=== PATIENT | female | born 1970 | race Caucasian/White ===

== ENCOUNTER 2018-11-24 08:46 | Day surgery (SDC) | payer BC ==
[~2018-11-24 08:46] MED LIST: Lactated Ringers 1,000 ML IV SCH
--- NOTE | 2018-11-24 09:22 | PCM.PREANE ---
Preanesthetic Assessment - Anesthesia/Transfusion/Family Hx Anesthesia History: Prior Anesthesia Without Reaction Family History of Anesthesia Reaction: No Transfusion History: No Prior Transfusion(s) Intubation History: Unknown - Review of Systems General: No Symptoms Pulmonary: No Symptoms Cardiovascular: No Symptoms Gastrointestinal: No Symptoms Neurological: No Symptoms Other: Reports: None - Physical Assessment Height: 5 ft 5 in Weight: 93.894 kg ASA Class: 2 Mental Status: Alert & Oriented x3 Airway Class: Mallampati = 2 Dentition: Reports: Broken Tooth/Teeth (multiple), Missing Tooth/Teeth (multiple ) Thyro-Mental Finger Breadths: 3 Mouth Opening Finger Breadths: 3 ROM/Head Extension: Full Lungs: Clear to Auscultation, Normal Respiratory Effort Cardiovascular: Regular Rate, Regular Rhythm - Allergies Allergies/Adverse Reactions: Allergies Allergy/AdvReac Type Severity Reaction Status Date / Time No Known Allergies Allergy Verified 11/23/18 16:38 - Blood Blood Available: No - Anesthesia Plan Pre-Op Medication Ordered: None - Acknowledgements Anesthesia Type Planned: General Anesthesia Pt an Appropriate Candidate for the Planned Anesthesia: Yes Alternatives and Risks of Anesthesia Discussed w Pt/Guardian: Yes Pt/Guardian Understands and Agrees with Anesthesia Plan: Yes PreAnesthesia Questionnaire HEENT History: Reports: Other (See Below) Other HEENT History: wears glasses 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, Other (See Below) (ovarian cyst) Neurological History: Reports: Concussion Psychiatric History: Reports: Anxiety, Depression Endocrine/Metabolic History: Reports: Obesity/BMI 30+ - Past Surgical History Female Surgical History: Reports: Tubal Ligation - SUBSTANCE USE Smoking Status *Q: Never Smoker Recreational Drug Use History: No - HOME MEDS Home Medications: Home Meds ALPRAZolam [Xanax] 0.5 mg PO DAILY PRN 11/23/18 [History] Escitalopram [Lexapro] 20 mg PO DAILY 11/23/18 [History] Zolpidem [Ambien] 10 mg PO BEDTIME 11/23/18 [History] busPIRone HCl [Buspirone HCl] 7.5 mg PO BID 11/23/18 [History] medroxyPROGESTERone [Provera] 20 mg PO DAILY 11/23/18 [History] - CURRENT (IN HOUSE) MEDS Current Meds: Current Medications Lactated Ringer's (Ringers, Lactated) 1,000 mls @ 125 mls/hr IV ASDIRECTED [facility]
[2018-11-24] MEDS ORDERED: fentaNYL 100 MCG/2 ML SDV ONE (09:42)
[2018-11-24] MEDS ORDERED: Midazolam 1 MG/ML 2 ML SDV ONE ×2 (09:42→11:28)
[2018-11-24] MEDS ORDERED: Propofol 200 MG/20 ML SDV ONE ×2 (09:42→11:27)
[2018-11-24] MEDS ORDERED: Ondansetron 4 MG/2 ML SDV ONE ×2 (09:43→11:32)
[2018-11-24] MEDS ORDERED: Lidocaine 2% 5 ML SDV ONE ×2 (09:43→11:32)
[2018-11-24] MEDS ORDERED: Dexamethasone 4 MG/ML 5 ML MDV ONE ×2 (09:43→11:32)
[2018-11-24] MEDS ORDERED: fentaNYL 250 MCG/5 ML SDV ONE (11:28)
--- NOTE | 2018-11-24 12:42 | PCM.OPNOTE ---
- General Post-Op/Procedure Note Date of Surgery/Procedure: 11/24/18 Operative Procedure(s): operative hysteroscopy with directed biopsies and fractional D&C Findings: uterus retroverted sounds to 10 cm, bilateral tubal ostia identified. There were no discrete polyps or fibroids, there were several patches or prominent irregular endometrium that were directed biopsy using the myosure Pre Op Diagnosis: menorrhagia with anemia Post-Op Diagnosis: Same Anesthesia Technique: General LMA Primary Surgeon: Miracle Rubi Anesthesia Provider: Lucille Varma Pathology: directed endometrial biopsy, endocervical curettings, endometrial curettings. Fluid Replacement, Intraop: 1,100 EBL in mLs: 50 Complications: None Known. Condition: Good
--- NOTE | 2018-11-24 13:00 | PCM.POSTAN ---
POST ANESTHESIA ASSESSMENT - MENTAL STATUS Mental Status: Alert, Oriented - VITAL SIGNS Vital Signs: Last Vital Signs Temp 36.7 C 11/24/18 09:25 Pulse 108 H 11/24/18 12:53 Resp 12 11/24/18 12:53 BP 132/78 11/24/18 12:53 Pulse Ox 94 L 11/24/18 12:53 - RESPIRATORY Respiratory Status: Respiratory Rate WNL, Airway Patent, O2 Saturation Stable - CARDIOVASCULAR CV Status: Pulse Rate WNL, Blood Pressure Stable - GASTROINTESTINAL GI Status: No Symptoms - PAIN Pain Score: 0 - POST OP HYDRATION Hydration Status: Adequate & Stable - OBSERVATIONS Free Text/Narrative:: no anesthesia problems
--- NOTE | 2018-11-24 13:29 | PCM48HPAN ---
Post Anesthesia Note - EVALUATION WITHIN 48HRS OF ANESTHETIC Vital Signs in Normal Range: Yes Patient Participated in Evaluation: Yes Respiratory Function Stable: Yes Airway Patent: Yes Cardiovascular Function Stable: Yes Hydration Status Stable: Yes Pain Control Satisfactory: Yes Nausea and Vomiting Control Satisfactory: Yes Mental Status Recovered: Yes Vital Signs: Last Vital Signs Temp 36.7 C 11/24/18 09:25 Pulse 108 H 11/24/18 12:53 Resp 12 11/24/18 12:53 BP 132/78 11/24/18 12:53 Pulse Ox 94 L 11/24/18 12:53 - COMMENTS/OBSERVATIONS Free Text/Narrative:: no anesthesia problems
--- NOTE | 2018-11-24 15:36 | OR ---
SURGEON: Miracle Rubi M.D. DATE OF PROCEDURE: 11/24/2018 PREOPERATIVE DIAGNOSIS: Menorrhagia with anemia. POSTOPERATIVE DIAGNOSIS: Menorrhagia with anemia. PROCEDURES: Hysteroscopic directed biopsies, fractional D and C. PRIMARY SURGEON: Miracle Rubi MD. ANESTHESIA: General LMA. ESTIMATED BLOOD LOSS: 50 mL. FLUIDS: 1100 mL of crystalloid. FINDINGS: Uterus retroverted, 10 cm on sounding. Excellent visualization of the uterine cavity. Bilateral tubal ostia were identified. There was no discrete polyp or fibroid. There were several patches of prominent irregular endometrium which were directly biopsied followed by ECC and sharp curettage. PATHOLOGY SPECIMENS: Hysteroscopic directed endometrial biopsy, endometrial curettings, endocervical curettings. COMPLICATIONS: None known. DISPOSITION: Stable to recovery. BRIEF HISTORY: This is a 48-year-old female. She presents with a month long history of continuous heavy bleeding. She was initially placed on Provera by her primary care provider. She continued to bleed. She saturated through her pads. She presented to the emergency room in [place] on 11/22/2018 and received tranexamic acid. Her hemoglobin at that time was 9.2. Her bleeding did improve somewhat, but she continued to pass clots. Ultrasound showed a thickened endometrium of 16 mm, and she presented for consultation in the clinic yesterday, and I reviewed options with her, but explained that the first step was to get tissue sampling of the uterus and evaluate for a fibroid or polyp; and therefore, she agrees to proceed with a hysteroscopic evaluation of the uterine cavity with possible directed biopsies, possible polypectomy, and fractional D and C with risks discussed including bleeding, infection, injury to surrounding organs if uterine perforation was to occur, risk of fluid overload, risk of anesthesia. Understanding all these risks, she does desire to proceed. DESCRIPTION OF PROCEDURE: With the patient in dorsal lithotomy position, under adequate general LMA analgesia, the perineum and vagina were prepped with Betadine and draped in usual fashion for vaginal surgery. Bladder had been drained with a red Becerra catheter. SCDs were in place. An appropriate time-out was held. Bimanual examination revealed a retroverted 10-week size uterus. Speculum was placed in the vagina. The lower lip of the cervix was grasped with an Allis clamp and the uterus sounded to 10 cm. The uterus accepted a 6 mm hysteroscope without any difficulty and there was good visualization of the uterine cavity. However, due to the discrete areas of abnormal endometrium, I did desire to proceed with directed biopsy using the MyoSure. Therefore, the MyoSure scope was passed into the uterine cavity and the abnormal areas of endometrium were directly biopsied using the MyoSure. This being completed, the hysteroscope was removed. Sharp curettage of the endocervix was then performed and collected with a Cytobrush. Sharp curettage of the endometrium was then performed with a moderate amount of tissue obtained. All of the instruments were removed from the vagina. Final sponge, needle, and instrument counts were reported as correct. There were no known complications. The patient was transferred to recovery in good condition. SANKET MALLORY /[id number]
== END 2018-11-24 13:42 | disposition home or self-care (01) ==
LOC: MW.SDS 08:46
PROVIDERS: ATTEND Obstetrics & Gynecology
DX: N92.1 Excessive and frequent menstruation with irregular cycle (principal); D50.0 Iron deficiency anemia secondary to blood loss (chronic); F32.9 Major depressive disorder, single episode, unspecified; Z79.899 Other long term (current) drug therapy
CPT/HCPCS: 36415; 58558; 84703; 85027; J1100; J2001; J2250; J2405; J2704; J3010; J7120

== ENCOUNTER 2018-12-14 11:00 | Day surgery (SDC) | payer BC ==
--- NOTE | 2018-12-14 11:46 | PCM.PREANE ---
Preanesthetic Assessment - Anesthesia/Transfusion/Family Hx Anesthesia History: Prior Anesthesia Without Reaction Family History of Anesthesia Reaction: No Transfusion History: No Prior Transfusion(s) Intubation History: Unknown - Review of Systems General: No Symptoms Pulmonary: No Symptoms Cardiovascular: No Symptoms Gastrointestinal: No Symptoms Neurological: No Symptoms Other: Reports: None - Physical Assessment NPO Status Date: 12/13/18 NPO Status Time: 22:00 Vital Signs: Last Vital Signs Temp 96.8 F 12/14/18 11:16 Pulse 100 12/14/18 11:16 Resp 18 12/14/18 11:16 BP 144/86 H 12/14/18 11:16 Pulse Ox 95 12/14/18 11:16 Height: 5 ft 5 in Weight: 94.801 kg ASA Class: 2 Mental Status: Alert & Oriented x3 Airway Class: Mallampati = 2 Dentition: Reports: Missing Tooth/Teeth, Caries ROM/Head Extension: Full Lungs: Clear to Auscultation, Normal Respiratory Effort Cardiovascular: Regular Rate, Regular Rhythm - Allergies Allergies/Adverse Reactions: Allergies Allergy/AdvReac Type Severity Reaction Status Date / Time No Known Allergies Allergy Verified 12/11/18 16:49 - Blood Blood Available: No - Anesthesia Plan Pre-Op Medication Ordered: None - Acknowledgements Anesthesia Type Planned: General Anesthesia Pt an Appropriate Candidate for the Planned Anesthesia: Yes Alternatives and Risks of Anesthesia Discussed w Pt/Guardian: Yes Pt/Guardian Understands and Agrees with Anesthesia Plan: Yes Additional Comments: PMH: anx/dep PLAN: ga/lma with toradol PreAnesthesia Questionnaire HEENT History: Reports: Other (See Below) Other HEENT History: wears glasses 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
[2018-12-14] MEDS ORDERED: Lactated Ringers 1,000 ML IV SCH (12:15)
[2018-12-14] MEDS ORDERED: fentaNYL 100 MCG/2 ML SDV ONE (12:48)
[2018-12-14] MEDS ORDERED: Midazolam 1 MG/ML 2 ML SDV ONE (12:48)
[2018-12-14] MEDS ORDERED: Propofol 200 MG/20 ML SDV ONE ×2 (12:48→13:06)
[2018-12-14] MEDS ORDERED: Ondansetron 4 MG/2 ML SDV ONE (12:48)
[2018-12-14] MEDS ORDERED: fentaNYL 100 MCG/2 ML SDV IVPUSH PRN (13:23)
[2018-12-14] MEDS ORDERED: Ketorolac 30 MG/ML SDV ONE (13:28)
--- NOTE | 2018-12-14 13:32 | PCM.OPNOTE ---
- General Post-Op/Procedure Note Date of Surgery/Procedure: 12/14/18 Operative Procedure(s): diagnostic hysteroscopy, uterine curettage and Minverva thermal endometrial ablation Findings: Uterus sounds to 9 cm, cervix 4 cm, cavity 5 cm, normal appearing uterine, bilateral tubal ostia identified. Pre Op Diagnosis: Menorrhagia with anemia Post-Op Diagnosis: Same Anesthesia Technique: General LMA Primary Surgeon: Miracle Rubi Anesthesia Provider: Yakov Irwin Pathology: endometrial curettings. Fluid Replacement, Intraop: 500 EBL in mLs: 20 Drain/Tube Comments:: Hysteroscopic deficit 75 ml Complications: None Known Condition: Good
--- NOTE | 2018-12-14 13:57 | PCM.POSTAN ---
POST ANESTHESIA ASSESSMENT - MENTAL STATUS Mental Status: Alert, Oriented - VITAL SIGNS Vital Signs: Last Vital Signs Temp 99.0 F 12/14/18 13:33 Pulse 98 12/14/18 13:53 Resp 11 L 12/14/18 13:53 BP 132/75 12/14/18 13:53 Pulse Ox 96 12/14/18 13:53 - RESPIRATORY Respiratory Status: Respiratory Rate WNL, Airway Patent, O2 Saturation Stable - CARDIOVASCULAR CV Status: Pulse Rate WNL, Blood Pressure Stable - GASTROINTESTINAL GI Status: No Symptoms - POST OP HYDRATION Hydration Status: Adequate & Stable
--- NOTE | 2018-12-14 13:57 | PCM48HPAN ---
Post Anesthesia Note - EVALUATION WITHIN 48HRS OF ANESTHETIC Vital Signs in Normal Range: Yes Patient Participated in Evaluation: Yes Respiratory Function Stable: Yes Airway Patent: Yes Cardiovascular Function Stable: Yes Hydration Status Stable: Yes Pain Control Satisfactory: Yes Nausea and Vomiting Control Satisfactory: Yes Mental Status Recovered: Yes Vital Signs: Last Vital Signs Temp 99.0 F 12/14/18 13:33 Pulse 98 12/14/18 13:53 Resp 11 L 12/14/18 13:53 BP 132/75 12/14/18 13:53 Pulse Ox 96 12/14/18 13:53
[2018-12-14] MEDS ORDERED: Acetaminophen/oxyCODONE 325-5 MG Tab PO PRN (14:16)
--- NOTE | 2018-12-14 14:28 | OR ---
SURGEON: Miracle Rubi M.D. DATE OF PROCEDURE: 12/14/2018 PREOPERATIVE DIAGNOSIS: Menorrhagia with anemia. POSTOPERATIVE DIAGNOSIS: Menorrhagia with anemia. PROCEDURES: Diagnostic hysteroscopy, uterine curettage with Meaghan thermal endometrial ablation. PRIMARY SURGEON: Miracle Rubi MD. ANESTHESIA: LMA. ESTIMATED BLOOD LOSS: Less than 20 mL. FLUIDS: 500 mL of crystalloid. HYSTEROSCOPIC DEFICIT: 75 mL of normal saline. HYSTEROSCOPIC FINDINGS: The uterus sounds to 9 cm. Cervix sounds to 4 cm. Uterine depth of 5 cm. Upon hysteroscopy, bilateral tubal ostia were identified. There were no lesions. There was a small amount of increased endometrium anteriorly. PATHOLOGY SPECIMEN: Uterine curettings. ESTIMATED BLOOD LOSS: Less than 20 mL. COMPLICATIONS: None known. BRIEF HISTORY: This is a 48-year-old female. She presents with menorrhagia. She underwent hysteroscopy, polypectomy, fractional D and C 2-1/2 weeks ago. I did note the endometrial polyps. Due to heavy bleeding that she was having, I did not feel that I could have adequate pathology evaluation in the office; and therefore, we did not proceed with ablation at that time. However, the final pathology came back as benign endometrium, and she did continue to bleed following the D and C; and therefore, I have recommended further intervention. She has previously been treated with large amounts of Provera orally; therefore, I am uncertain whether the Mirena IUD will be effective for her in protecting her from bleeding, and she declines hysterectomy at this time, and therefore, desires to proceed with a thermal endometrial ablation with risks discussed including bleeding, infection, uterine perforation with injury to surrounding organs, risk of fluid overload. She understands that she must never become after having an ablation due to the lack of place for the embryo to implant and additionally risk of hematometra and risk of failure of 10% to 20%. Understanding all these risks, she does desire to proceed. DESCRIPTION OF PROCEDURE: With the patient in dorsal lithotomy position, under adequate general LMA analgesia, the perineum and vagina were prepped with Betadine and draped in the usual fashion for vaginal surgery. She had emptied her bladder prior to coming to the operating room. SCDs were in place and an appropriate time-out was held. Bimanual examination revealed an 8- to 9-week size midposition uterus. Speculum was placed in the vagina. The cervix was grasped with an Allis clamp. The 5 mm hysteroscope was placed into the uterine cavity with excellent visualization. Findings as noted above. The hysteroscope was removed and sharp curettage of the endometrium only was performed and a moderate amount of tissue was obtained. This being completed, the Meaghan system was set up with a depth of 5 cm for the uterine fundus, and once the initial test had been passed, the 2-minute treatment cycle was initiated with the balloon inflated and the treatment cycle completed without any difficulty. The balloon was deflated, the arms were retracted, and the Meaghan instrument was removed from the uterus as well as all the instruments removed from the vagina. Final sponge, needle, and instrument counts were reported as correct. There were no complications. The patient was transferred to recovery in good condition. SANKET MALLORY /[id number]
== END 2018-12-14 14:38 | disposition home or self-care (01) ==
LOC: MW.SDS 11:00
PROVIDERS: ATTEND Obstetrics & Gynecology
DX: N92.0 Excessive and frequent menstruation with regular cycle (principal); D50.0 Iron deficiency anemia secondary to blood loss (chronic); F32.9 Major depressive disorder, single episode, unspecified; Z79.899 Other long term (current) drug therapy
CPT/HCPCS: 58563; 88305; A9270; J1885; J2001; J2250; J2405; J2704; J3010; J7120

== ENCOUNTER 2019-12-25 10:03 | Inpatient (IN) | payer BC, OTHER ==
[2019-12-25] MEDS ORDERED: Sodium Chloride 0.9% 2.5 ML Syringe FLUSH PRN (10:17)
[2019-12-25] MEDS ORDERED: Sodium Chloride 0.9% 10 ML Syringe FLUSH PRN (10:17)
[2019-12-25] MEDS ORDERED: Dexamethasone 10 MG/ML SDV IVPUSH ONE (10:19)
--- NOTE | 2019-12-25 10:42 | EDM.PDOC ---
ED HPI GENERAL MEDICAL PROBLEM - General Chief Complaint: Respiratory Problem Stated Complaint: COVID-19/SOB Time Seen by Provider: 12/25/19 10:05 Source of Information: Reports: Patient History Limitations: Reports: No Limitations - History of Present Illness INITIAL COMMENTS - FREE TEXT/NARRATIVE: There is a very nice 49-year-old female with a past medical history of depressio n presenting with shortness of breath and infectious symptoms. She was reportedly diagnosed with COVID-19 on 12/17/2019 at [facility]. Since then, she has had gradually worsening shortness of breath, cough, intermittent confusion, and diarrhea. Her states that she has been intermittently confused at home and not making much sense. This morning, she states that her breathing got worse, which brought her to the emergency department. She also complains of some mild dysuria. No history of autoimmune disease. Denies any neck pain, trouble swallowing or speaking, chest discomfort, h emoptysis, abdominal pain, emesis, rash. ROS: A 10-point review of systems was negative, except as noted in the HPI (or in the ROS section of this note). Past medical history: Reviewed, no additional pertinent history. Surgical history: Reviewed in system, no additional pertinent history. Social history: Reviewed in system, no additional pertinent history. Family history: Reviewed in system, no additional pertinent history. Limited physical examination was performed due to COVID pandemic, distanced physical examination to prevent physician exposure and to preserve PPE. Vital signs reviewed. Nursing notes reviewed. Constitutional: Awake, alert, non-distressed. Head: Normocephalic, atraumatic. Eyes: No scleral icterus. Neck: Able to fully flex and extend. Fully rotates side to side. Cardiovascular: No extremity edema. Tachycardic. 2+ radial pulse. Capillary refill less than 2 seconds. Pulmonary: normal work of breathing, no accessory muscle use. Speaking in full sentences, handling secretions well. Abdomen/GI: nondistended, nontender. Musculoskeletal: No deformities. Integumentary: Appropriate color for ethnicity, warm, dry, no pallor or jaundice, no rash. Neurologic: Alert, answering questions appropriately, normal speech, no facial droop, moving all extremities well. Normal voice. Psychiatric: Appropriate mood and affect, normal thought process. This patient was seen and evaluated during the 2019 SARS-CoV-2 novel coronavirus pandemic period. Community viral transmission is ongoing at time of this encounter. 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, Endometriosis, Neurological History: Reports: Concussion Psychiatric History: Reports: Anxiety, Depression Endocrine/Metabolic History: Reports: Obesity/BMI 30+ - Past Surgical History Female Surgical History: Reports: D&C, Tubal Ligation Social & Family History - Tobacco Use Tobacco Use Status *Q: Never Tobacco User - Recreational Drug Use Recreational Drug Use: No ED ROS GENERAL - Review of Systems Review Of Systems: See Below ED EXAM, GENERAL - Physical Exam Exam: See Below #1 Interpretation EKG Interpretation Comments: 12-Lead ECG Interpretation Acquired: 10:27 AM Rhythm: Sinus rhythm Rate: 93 bpm [place]: Normal Intervals: Normal Ectopy: None RV Strain: No obvious RV strain pattern. ST Segments/T-Waves: T wave inversions in leads III and V3 Acute Ischemic Changes: None apparent Interpretation: No STEMI Course - Vital Signs Text/Narrative:: 49-year-old female presenting with worsening of shortness of breath, fatigue, confusion, diarrhea, and recent COVID-19 diagnosis. Differential diagnosis includes but is not limited to: Sepsis, severe sepsis, C OVID-19, viral pneumonia, bacterial pneumonia, bacteremia, pneumothorax, pleural effusion, congestive heart failure, pulmonary embolism, myocarditis, and many others. Noted to be hypoxic with room air saturations in the 60s on arrival. Immediately roomed and placed on supplemental oxygen. IV access established and labs were sent off. Ordered twelve-lead EKG, chest x-ray, urinalysis. CBC shows leukopenia. ESR elevated at 66. INR and D-dimer normal. APTT elevated at 31.8. Lactate normal. Electrolytes normal. Mild creatinine elevation at 1.2. AST and ALT elevated. Negative troponin and BNP. CRP elevated at 6.0. Urinalysis shows positive nitrites, added on a urine culture. Patient was not hypotensive and lactate was under 4, so she did not qualify for the 30 mL/kg sepsis fluid bolus. Blood cultures were obtained prior to the administration of broad-spectrum antibiotics. She does not meet criteria for septic shock at this point but she does meet criteria for severe sepsis given her hypoxia. Head CT is negative. Chest x-ray shows diffuse interstitial prominence, patchy nodular and ill-defined infiltrates in the left mid and lower lung with mild opacity in the right lung base, possibly due to an infectious process including COVID-19 pneumonia. Borderline cardiomegaly. Patient was given IV dexamethasone, IV remdesivir (obtained verbal consent), IV ceftriaxone. Requiring nasal cannula low-flow oxygen to maintain oxygen saturations above 90%. Will be admitted to the hospital for acute hypoxic respiratory failure with COVID-19 pneumonia. Spoke with the hospitalist Dr. Hoskins's resident who agrees to admit. Last Recorded V/S: Last Vital Signs Temp 36.4 C 12/25/19 10:13 Pulse 105 H 12/25/19 10:13 Resp 19 12/25/19 10:13 BP 110/70 12/25/19 10:13 Pulse Ox 95 12/25/19 10:18 - Orders/Labs/Meds Orders: Active Orders 24 hr Category Date Time Status Admission Status [Patient Status] [ADT] Stat ADT 12/25/19 11:23 Active Cardiac Monitoring [RC] CONTINUOUS Care 12/25/19 10:17 Active EKG Documentation Completion [RC] STAT Care 12/25/19 10:17 Active Overnight Pulse Oximetry [RC] Click to Edit Care 12/25/19 10:18 Active Oxygen Therapy, ED [RC] STAT Care 12/25/19 10:18 Active CORONAVIRUS COVID-19 DEWAYNE [MOLEC] Stat Lab 12/25/19 11:57 Received CULTURE BLOOD [BC] Stat Lab 12/25/19 10:11 Received CULTURE BLOOD [BC] Stat Lab 12/25/19 10:39 Received CULTURE URINE [RM] Stat Lab 12/25/19 10:22 Received Remdesivir (Eua) [Remdesivir (EUA)] 200 mg Med 12/25/19 12:00 Active Sodium Chloride 0.9% [Normal Saline] 250 ml IV ONETIME Sodium Chloride 0.9% [Saline Flush] Med 12/25/19 10:17 Active 10 ml FLUSH ASDIRECTED PRN Sodium Chloride 0.9% [Saline Flush] Med 12/25/19 10:17 Active 2.5 ml FLUSH ASDIRECTED PRN Blood Culture x2 Reflex Set [OM.PC] Stat Oth 12/25/19 10:17 Ordered Pulse Oximetry Continuous Monitoring [OM.PC] Routine Oth 12/25/19 10:17 Ordered Saline Lock Insert [OM.PC] Stat Oth 12/25/19 10:17 Ordered Severe Sepsis Onset Time [OM.PC] Stat Oth 12/25/19 10:17 Ordered Medication Orders Remdesivir 200 mg/ Sodium (Chloride) 250 mls @ 250 mls/hr IV ONETIME ONE Stop: 12/25/19 12:59 Last Admin: 12/25/19 12:08 Dose: 250 mls/hr Documented by: FREIDA Sodium Chloride (Saline Flush) 10 ml FLUSH ASDIRECTED PRN PRN Reason: Keep Vein Open Last Admin: 12/25/19 10:31 Dose: 10 ml Documented by: [id number] Sodium Chloride (Saline Flush) 2.5 ml FLUSH ASDIRECTED PRN PRN Reason: Keep Vein Open Last Admin: 12/25/19 10:31 Dose: 2.5 ml Documented by: [id number] Labs: Laboratory Tests 12/25/19 12/25/19 12/25/19 Range/Units 10:11 10:11 10:11 WBC 2.87 L (4.0-11.0) K/uL RBC 4.40 (4.30-5.90) M/uL Hgb 12.8 (12.0-16.0) g/dL Hct 41.0 (36.0-46.0) % MCV 93.2 (80.0-98.0) fL MCH 29.1 (27.0-32.0) pg MCHC 31.2 (31.0-37.0) g/dL RDW Std Deviation 44.5 (28.0-62.0) fl RDW Coeff of [place] 13 (11.0-15.0) % Plt Count 146 L (150-400) K/uL MPV 10.40 (7.40-12.00) fL Neut % (Auto) 53.0 (48.0-80.0) % Lymph % (Auto) 37.6 (16.0-40.0) % [place] % (Auto) 9.1 (0.0-15.0) % Eos % (Auto) 0.3 (0.0-7.0) % Baso % (Auto) 0.0 (0.0-1.5) % Neut # (Auto) 1.5 (1.4-5.7) K/uL Lymph # (Auto) 1.1 (0.6-2.4) K/uL [place] # (Auto) 0.3 (0.0-0.8) K/uL Eos # (Auto) 0.0 (0.0-0.7) K/uL Baso # (Auto) 0.0 (0.0-0.1) K/uL Nucleated RBC % 0.0 /100WBC Nucleated RBCs # 0 K/uL ESR (0-19) mm/hr INR 1.03 APTT 31.8 H (18.6-31.3) SEC D-Dimer, Quantitative (0.0-0.50) mg/L FEU VBG pH (7.31-7.41) VBG pCO2 (35-45) mmHG VBG pO2 (30-40) mmHG VBG HCO3 (22-30) mEq/L VBG Total CO2 (41-51) mmol/L VBG Base Excess (-3.0-3.0) Lactate 0.9 (0.20-2.00) mmol/L Sodium (136-145) mmol/L Potassium (3.5-5.1) mmol/L Chloride (98-107) mmol/L Carbon Dioxide (21.0-32.0) mmol/L BUN (7.0-18.0) mg/dL Creatinine (0.6-1.0) mg/dL Est Cr Clr Drug Dosing Estimated GFR (MDRD) ml/min Glucose (74-106) mg/dL Calcium (8.5-10.1) mg/dL Total Bilirubin (0.2-1.0) mg/dL AST (15-37) IU/L ALT (14-63) IU/L Alkaline Phosphatase (46-116) U/L Troponin I (0.000-0.056) ng/mL C-Reactive Protein (0.00-0.90) mg/dL B-Natriuretic Peptide (<100) PG/ML Total Protein (6.4-8.2) g/dL Albumin (3.4-5.0) g/dL Globulin (2.6-4.0) g/dL Albumin/Globulin Ratio (0.9-1.6) Urine Color Urine Appearance Urine pH (5.0-8.0) Ur Specific [place] (1.001-1.035) Urine Protein (NEGATIVE) mg/dL Urine Glucose (UA) (NEGATIVE) mg/dL Urine Ketones (NEGATIVE) mg/dL Urine Occult Blood (NEGATIVE) Urine Nitrite (NEGATIVE) Urine Bilirubin (NEGATIVE) Urine Urobilinogen (<2.0) EU/dL Ur Leukocyte Esterase (NEGATIVE) Urine RBC (0-2/HPF) Urine WBC (0-5/HPF) Ur Epithelial Cells (NONE-FEW) Amorphous Sediment (NEGATIVE) Urine Bacteria (NEGATIVE) Urine Mucus (NONE-MOD) 12/25/19 12/25/19 12/25/19 Range/Units 10:11 10:11 10:11 WBC (4.0-11.0) K/uL RBC (4.30-5.90) M/uL Hgb (12.0-16.0) g/dL Hct (36.0-46.0) % MCV (80.0-98.0) fL MCH (27.0-32.0) pg MCHC (31.0-37.0) g/dL RDW Std Deviation (28.0-62.0) fl RDW Coeff of [place] (11.0-15.0) % Plt Count (150-400) K/uL MPV (7.40-12.00) fL Neut % (Auto) (48.0-80.0) % Lymph % (Auto) (16.0-40.0) % [place] % (Auto) (0.0-15.0) % Eos % (Auto) (0.0-7.0) % Baso % (Auto) (0.0-1.5) % Neut # (Auto) (1.4-5.7) K/uL Lymph # (Auto) (0.6-2.4) K/uL [place] # (Auto) (0.0-0.8) K/uL Eos # (Auto) (0.0-0.7) K/uL Baso # (Auto) (0.0-0.1) K/uL Nucleated RBC % /100WBC Nucleated RBCs # K/uL ESR 66 H (0-19) mm/hr INR APTT (18.6-31.3) SEC D-Dimer, Quantitative 0.48 (0.0-0.50) mg/L FEU VBG pH (7.31-7.41) VBG pCO2 (35-45) mmHG VBG pO2 (30-40) mmHG VBG HCO3 (22-30) mEq/L VBG Total CO2 (41-51) mmol/L VBG Base Excess (-3.0-3.0) Lactate (0.20-2.00) mmol/L Sodium 142 (136-145) mmol/L Potassium 3.8 (3.5-5.1) mmol/L Chloride 104 (98-107) mmol/L Carbon Dioxide 29.7 (21.0-32.0) mmol/L BUN 9 (7.0-18.0) mg/dL Creatinine 1.2 H (0.6-1.0) mg/dL Est Cr Clr Drug Dosing TNP Estimated GFR (MDRD) 47.9 ml/min Glucose 103 (74-106) mg/dL Calcium 8.2 L (8.5-10.1) mg/dL Total Bilirubin 0.3 (0.2-1.0) mg/dL AST 121 H (15-37) IU/L ALT 85 H (14-63) IU/L Alkaline Phosphatase 116 (46-116) U/L Troponin I < 0.050 (0.000-0.056) ng/mL C-Reactive Protein 6.80 H (0.00-0.90) mg/dL B-Natriuretic Peptide (<100) PG/ML Total Protein 7.3 (6.4-8.2) g/dL Albumin 3.2 L (3.4-5.0) g/dL Globulin 4.1 H (2.6-4.0) g/dL Albumin/Globulin Ratio 0.8 L (0.9-1.6) Urine Color Urine Appearance Urine pH (5.0-8.0) Ur Specific [place] (1.001-1.035) Urine Protein (NEGATIVE) mg/dL Urine Glucose (UA) (NEGATIVE) mg/dL Urine Ketones (NEGATIVE) mg/dL Urine Occult Blood (NEGATIVE) Urine Nitrite (NEGATIVE) Urine Bilirubin (NEGATIVE) Urine Urobilinogen (<2.0) EU/dL Ur Leukocyte Esterase (NEGATIVE) Urine RBC (0-2/HPF) Urine WBC (0-5/HPF) Ur Epithelial Cells (NONE-FEW) Amorphous Sediment (NEGATIVE) Urine Bacteria (NEGATIVE) Urine Mucus (NONE-MOD) 12/25/19 12/25/19 12/25/19 Range/Units 10:11 10:11 10:22 WBC (4.0-11.0) K/uL RBC (4.30-5.90) M/uL Hgb (12.0-16.0) g/dL Hct (36.0-46.0) % MCV (80.0-98.0) fL MCH (27.0-32.0) pg MCHC (31.0-37.0) g/dL RDW Std Deviation (28.0-62.0) fl RDW Coeff of [place] (11.0-15.0) % Plt Count (150-400) K/uL MPV (7.40-12.00) fL Neut % (Auto) (48.0-80.0) % Lymph % (Auto) (16.0-40.0) % [place] % (Auto) (0.0-15.0) % Eos % (Auto) (0.0-7.0) % Baso % (Auto) (0.0-1.5) % Neut # (Auto) (1.4-5.7) K/uL Lymph # (Auto) (0.6-2.4) K/uL [place] # (Auto) (0.0-0.8) K/uL Eos # (Auto) (0.0-0.7) K/uL Baso # (Auto) (0.0-0.1) K/uL Nucleated RBC % /100WBC Nucleated RBCs # K/uL ESR (0-19) mm/hr INR APTT (18.6-31.3) SEC D-Dimer, Quantitative (0.0-0.50) mg/L FEU VBG pH 7.42 H (7.31-7.41) VBG pCO2 47 H (35-45) mmHG VBG pO2 51 H (30-40) mmHG VBG HCO3 30 (22-30) mEq/L VBG Total CO2 28 L (41-51) mmol/L VBG Base Excess 5.0 H (-3.0-3.0) Lactate (0.20-2.00) mmol/L Sodium (136-145) mmol/L Potassium (3.5-5.1) mmol/L Chloride (98-107) mmol/L Carbon Dioxide (21.0-32.0) mmol/L BUN (7.0-18.0) mg/dL Creatinine (0.6-1.0) mg/dL Est Cr Clr Drug Dosing Estimated GFR (MDRD) ml/min Glucose (74-106) mg/dL Calcium (8.5-10.1) mg/dL Total Bilirubin (0.2-1.0) mg/dL AST (15-37) IU/L ALT (14-63) IU/L Alkaline Phosphatase (46-116) U/L Troponin I (0.000-0.056) ng/mL C-Reactive Protein (0.00-0.90) mg/dL B-Natriuretic Peptide 7 (<100) PG/ML Total Protein (6.4-8.2) g/dL Albumin (3.4-5.0) g/dL Globulin (2.6-4.0) g/dL Albumin/Globulin Ratio (0.9-1.6) Urine Color YELLOW Urine Appearance HAZY Urine pH 5.5 (5.0-8.0) Ur Specific [place] >= 1.030 (1.001-1.035) Urine Protein TRACE H (NEGATIVE) mg/dL Urine Glucose (UA) NEGATIVE (NEGATIVE) mg/dL Urine Ketones NEGATIVE (NEGATIVE) mg/dL Urine Occult Blood MODERATE H (NEGATIVE) Urine Nitrite POSITIVE H (NEGATIVE) Urine Bilirubin NEGATIVE (NEGATIVE) Urine Urobilinogen 1.0 (<2.0) EU/dL Ur Leukocyte Esterase NEGATIVE (NEGATIVE) Urine RBC 8-12 (0-2/HPF) Urine WBC 0-2 (0-5/HPF) Ur Epithelial Cells FEW (NONE-FEW) Amorphous Sediment FEW (NEGATIVE) Urine Bacteria FEW (NEGATIVE) Urine Mucus FEW (NONE-MOD) Meds: Medications Generic Name Dose Route Start Last Admin Trade Name Jimboq PRN Reason Stop Dose Admin Remdesivir 200 mg/ Sodium 250 mls @ 250 mls/hr 12/25/19 12:00 12/25/19 12:08 Chloride IV 12/25/19 12:59 250 mls/hr ONETIME ONE Administration Sodium Chloride 10 ml 12/25/19 10:17 12/25/19 10:31 Saline Flush FLUSH 10 ml ASDIRECTED PRN Administration Keep Vein Open Sodium Chloride 2.5 ml 12/25/19 10:17 12/25/19 10:31 Saline Flush FLUSH 2.5 ml ASDIRECTED PRN Administration Keep Vein Open Discontinued Medications Generic Name Dose Route Start Last Admin Trade Name Jimboq PRN Reason Stop Dose Admin Dexamethasone 6 mg 12/25/19 10:19 12/25/19 10:30 Dexamethasone IVPUSH 12/25/19 10:20 6 mg ONETIME ONE Administration Ceftriaxone Sodium/Dextrose 1 50 mls @ 100 mls/hr 12/25/19 11:10 12/25/19 11:16 gm/ Premix IV 12/25/19 11:39 100 mls/hr ONETIME ONE Administration Departure - Departure Time of Disposition: 11:21 Disposition: Admitted As Inpatient 67 Condition: Good Clinical Impression: COVID-19 virus infection, Acute respiratory failure with hypoxia Acute cystitis Qualifiers: Hematuria presence: with hematuria Qualified Code(s): N30.01 - Acute cystitis with hematuria - Discharge Information Referrals: PCP,Unknown [Primary Care Provider] - Forms: ED Department Discharge Sepsis Event Note (ED) - Evaluation Sepsis Screening Result: Possible Severe Sepsis Risk - Focused Exam Vital Signs: Vital Signs Temp Pulse Resp BP Pulse Ox 12/25/19 10:18 95 12/25/19 10:15 98 12/25/19 10:13 36.4 C 105 H 19 110/70 64 L 12/25/19 10:12 96 10/24/20 10:08 97 - My Orders Last 24 Hours: My Active Orders 12/25/19 10:11 CULTURE BLOOD [BC] Stat 12/25/19 10:17 Cardiac Monitoring [RC] CONTINUOUS EKG Documentation Completion [RC] STAT Sodium Chloride 0.9% [Saline Flush] 10 ml FLUSH ASDIRECTED PRN Sodium Chloride 0.9% [Saline Flush] 2.5 ml FLUSH ASDIRECTED PRN Blood Culture x2 Reflex Set [OM.PC] Stat Pulse Oximetry Continuous Monitoring [OM.PC] Routine Saline Lock Insert [OM.PC] Stat Severe Sepsis Onset Time [OM.PC] Stat 12/25/19 10:18 Overnight Pulse Oximetry [RC] Click to Edit Oxygen Therapy, ED [RC] STAT 12/25/19 10:22 CULTURE URINE [RM] Stat 12/25/19 10:39 CULTURE BLOOD [BC] Stat 12/25/19 11:23 Admission Status [Patient Status] [ADT] Stat 12/25/19 11:57 CORONAVIRUS COVID-19 DEWAYNE [MOLEC] Stat 12/25/19 12:00 Remdesivir (Eua) [Remdesivir (EUA)] 200 mg Sodium Chloride 0.9% [Normal Saline] 250 ml IV ONETIME - Assessment/Plan Last 24 Hours: My Active Orders 12/25/19 10:11 CULTURE BLOOD [BC] Stat 12/25/19 10:17 Cardiac Monitoring [RC] CONTINUOUS EKG Documentation Completion [RC] STAT Sodium Chloride 0.9% [Saline Flush] 10 ml FLUSH ASDIRECTED PRN Sodium Chloride 0.9% [Saline Flush] 2.5 ml FLUSH ASDIRECTED PRN Blood Culture x2 Reflex Set [OM.PC] Stat Pulse Oximetry Continuous Monitoring [OM.PC] Routine Saline Lock Insert [OM.PC] Stat Severe Sepsis Onset Time [OM.PC] Stat 12/25/19 10:18 Overnight Pulse Oximetry [RC] Click to Edit Oxygen Therapy, ED [RC] STAT 12/25/19 10:22 CULTURE URINE [RM] Stat 12/25/19 10:39 CULTURE BLOOD [BC] Stat 12/25/19 11:23 Admission Status [Patient Status] [ADT] Stat 12/25/19 11:57 CORONAVIRUS COVID-19 DEWAYNE [MOLEC] Stat 12/25/19 12:00 Remdesivir (Eua) [Remdesivir (EUA)] 200 mg Sodium Chloride 0.9% [Normal Saline] 250 ml IV ONETIME
[2019-12-25 10:47] LABS: BLOOD UREA NITROGEN,BUN 9 mg/dL (7.0-18.0); CARBON DIOXIDE,CO2 29.7 mmol/L (21.0-32.0); CHLORIDE,CL 104 mmol/L (98-107); GLUCOSE RANDOM 103 mg/dL (74-106); POTASSIUM,K 3.8 mmol/L (3.5-5.1); SODIUM,NA 142 mmol/L (136-145)
[2019-12-25] MEDS ORDERED: cefTRIAXone 1 GM in Premix Bag 1 BAG IV ONE (11:10)
--- NOTE | 2019-12-25 11:51 | CR ---
INDICATION: Dyspnea. Hypoxia. COVID positive patient. TECHNIQUE: AP portable chest x-ray. FINDINGS: Diffuse interstitial prominence in the lungs. Patchy nodular and ill-defined infiltrates in the left mid and lower lung with mild opacity in the right lung base. Findings could be infectious and related to a patchy pneumonia including a COVID 19 pneumonia. Suggest follow-up chest x-ray to reassess. Component of linear atelectasis or scarring in the left mid and upper lung. Mild elevation right hemidiaphragm. Heart is upper limits of normal. Old left clavicular fracture. Chest otherwise negative. Dictated by Lucas Taylor MD @ Dec 25 2019 11:49AM Signed by Dr. Lucas Taylor @ Dec 25 2019 11:49AM
--- NOTE | 2019-12-25 11:55 | CT ---
Indication : Intermittent confusion TECHNIQUE: CT head without IV contrast. FINDINGS: No acute intracranial hemorrhage, edema, or mass effect. Moderate soft tissue prominence along the upper oropharynx nonspecific and may be exacerbated by technique with possible fluid in this region. Minimal cerebral atrophy. Remainder negative. IMPRESSION: 1. No acute intracranial disease. Chronic intracranial findings and other findings as above. Please note that all CT scans at this facility use dose modulation, iterative reconstruction, and/or weight-based dosing when appropriate to reduce radiation dose to as low as reasonably achievable. Dictated by Lucas Taylor MD @ Dec 25 2019 11:45AM Signed by Dr. Lucas Taylor @ Dec 25 2019 11:55AM
[2019-12-25] MEDS ORDERED: Ondansetron 4 MG/2 ML SDV IVPUSH PRN (14:32)
[2019-12-25] MEDS ORDERED: Acetaminophen 325 MG Tab PO PRN (14:32)
--- NOTE | 2019-12-25 14:44 | PCM.HP.2 ---
H&P History of Present Illness - General Date of Service: 12/25/19 Admit Problem/Dx: Admission Diagnosis/Problem Admission Diagnosis/Problem Hypoxia - History of Present Illness Initial Comments - Free Text/Narative: 49-year-old female presents complaining of shortness of breath and cough. She tested positive for COVID-19 approximately 1 week in [place], [place]. She has PMH of depression and anxiety. She reports being sick for about 3-4 days before being tested positive for COVID-19 1 week ago. She came to the hospital today because her breathing, cough and fatigue became much worse. She also reports having diarrhea and pain on urination. Patient's significant other also reported patient has appeared confused at times. In the ER, patient requiring 6 L supplemental oxygen via NC. CXR showed b/l opacities. WBC 2.87, creatinine 1.2, lactate normal, ESR and CRP were elevated and D-dimer was normal. Blood cultures were obtained. UA positive for nitrites and occult blood. CT head was unremarkable. EKG was unremarkable. Patient given dose of dexamethasone, remdesivir and IV ceftriaxone. She was admitted for further evaluation and treatment. 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 Exam - Exam Exam: See Below - Vital Signs Vital Signs: Last Vital Signs Temp 36.4 C 12/25/19 10:13 Pulse 92 12/25/19 14:30 Resp 19 12/25/19 10:13 BP 115/64 12/25/19 14:30 Pulse Ox 100 12/25/19 14:30 Weight: 94.4 kg - Exam General: Alert, Oriented, Cooperative, Other (NAD) HEENT: Conjunctiva Clear, EOMI, Pupils Equal, Pupils Reactive Neck: Supple, Trachea Midline Lungs: Clear to Auscultation, Normal Respiratory Effort Cardiovascular: Regular Rate, Regular Rhythm GI/Abdominal Exam: Normal Bowel Sounds, Soft, Non-Tender, No Distention Extremities: Normal Inspection, No Pedal Edema Neuro Extensive - Mental Status: Alert, Oriented x3, Normal Mood/Affect Psychiatric: Alert, Normal Affect, Normal Mood - Patient Data Lab Results Last 24 hrs: Laboratory Results - last 24 hr 12/25/19 12/25/19 12/25/19 Range/Units 10:11 10:11 10:11 WBC 2.87 L (4.0-11.0) K/uL RBC 4.40 (4.30-5.90) M/uL Hgb 12.8 (12.0-16.0) g/dL Hct 41.0 (36.0-46.0) % MCV 93.2 (80.0-98.0) fL MCH 29.1 (27.0-32.0) pg MCHC 31.2 (31.0-37.0) g/dL RDW Std Deviation 44.5 (28.0-62.0) fl RDW Coeff of Isrrael 13 (11.0-15.0) % Plt Count 146 L (150-400) K/uL MPV 10.40 (7.40-12.00) fL Neut % (Auto) 53.0 (48.0-80.0) % Lymph % (Auto) 37.6 (16.0-40.0) % [place] % (Auto) 9.1 (0.0-15.0) % Eos % (Auto) 0.3 (0.0-7.0) % Baso % (Auto) 0.0 (0.0-1.5) % Neut # (Auto) 1.5 (1.4-5.7) K/uL Lymph # (Auto) 1.1 (0.6-2.4) K/uL [place] # (Auto) 0.3 (0.0-0.8) K/uL Eos # (Auto) 0.0 (0.0-0.7) K/uL Baso # (Auto) 0.0 (0.0-0.1) K/uL Nucleated RBC % 0.0 /100WBC Nucleated RBCs # 0 K/uL ESR (0-19) mm/hr INR 1.03 APTT 31.8 H (18.6-31.3) SEC D-Dimer, Quantitative (0.0-0.50) mg/L FEU VBG pH (7.31-7.41) VBG pCO2 (35-45) mmHG VBG pO2 (30-40) mmHG VBG HCO3 (22-30) mEq/L VBG Total CO2 (41-51) mmol/L VBG Base Excess (-3.0-3.0) Lactate 0.9 (0.20-2.00) mmol/L Sodium (136-145) mmol/L Potassium (3.5-5.1) mmol/L Chloride (98-107) mmol/L Carbon Dioxide (21.0-32.0) mmol/L BUN (7.0-18.0) mg/dL Creatinine (0.6-1.0) mg/dL Est Cr Clr Drug Dosing Estimated GFR (MDRD) ml/min Glucose (74-106) mg/dL Calcium (8.5-10.1) mg/dL Total Bilirubin (0.2-1.0) mg/dL AST (15-37) IU/L ALT (14-63) IU/L Alkaline Phosphatase (46-116) U/L Troponin I (0.000-0.056) ng/mL C-Reactive Protein (0.00-0.90) mg/dL B-Natriuretic Peptide (<100) PG/ML Total Protein (6.4-8.2) g/dL Albumin (3.4-5.0) g/dL Globulin (2.6-4.0) g/dL Albumin/Globulin Ratio (0.9-1.6) Urine Color Urine Appearance Urine pH (5.0-8.0) Ur Specific [place] (1.001-1.035) Urine Protein (NEGATIVE) mg/dL Urine Glucose (UA) (NEGATIVE) mg/dL Urine Ketones (NEGATIVE) mg/dL Urine Occult Blood (NEGATIVE) Urine Nitrite (NEGATIVE) Urine Bilirubin (NEGATIVE) Urine Urobilinogen (<2.0) EU/dL Ur Leukocyte Esterase (NEGATIVE) Urine RBC (0-2/HPF) Urine WBC (0-5/HPF) Ur Epithelial Cells (NONE-FEW) Amorphous Sediment (NEGATIVE) Urine Bacteria (NEGATIVE) Urine Mucus (NONE-MOD) SARS-CoV-2 RNA (DEWAYNE) (NEGATIVE) 12/25/19 12/25/19 12/25/19 Range/Units 10:11 10:11 10:11 WBC (4.0-11.0) K/uL RBC (4.30-5.90) M/uL Hgb (12.0-16.0) g/dL Hct (36.0-46.0) % MCV (80.0-98.0) fL MCH (27.0-32.0) pg MCHC (31.0-37.0) g/dL RDW Std Deviation (28.0-62.0) fl RDW Coeff of Isrrael (11.0-15.0) % Plt Count (150-400) K/uL MPV (7.40-12.00) fL Neut % (Auto) (48.0-80.0) % Lymph % (Auto) (16.0-40.0) % [place] % (Auto) (0.0-15.0) % Eos % (Auto) (0.0-7.0) % Baso % (Auto) (0.0-1.5) % Neut # (Auto) (1.4-5.7) K/uL Lymph # (Auto) (0.6-2.4) K/uL [place] # (Auto) (0.0-0.8) K/uL Eos # (Auto) (0.0-0.7) K/uL Baso # (Auto) (0.0-0.1) K/uL Nucleated RBC % /100WBC Nucleated RBCs # K/uL ESR 66 H (0-19) mm/hr INR APTT (18.6-31.3) SEC D-Dimer, Quantitative 0.48 (0.0-0.50) mg/L FEU VBG pH (7.31-7.41) VBG pCO2 (35-45) mmHG VBG pO2 (30-40) mmHG VBG HCO3 (22-30) mEq/L VBG Total CO2 (41-51) mmol/L VBG Base Excess (-3.0-3.0) Lactate (0.20-2.00) mmol/L Sodium 142 (136-145) mmol/L Potassium 3.8 (3.5-5.1) mmol/L Chloride 104 (98-107) mmol/L Carbon Dioxide 29.7 (21.0-32.0) mmol/L BUN 9 (7.0-18.0) mg/dL Creatinine 1.2 H (0.6-1.0) mg/dL Est Cr Clr Drug Dosing TNP Estimated GFR (MDRD) 47.9 ml/min Glucose 103 (74-106) mg/dL Calcium 8.2 L (8.5-10.1) mg/dL Total Bilirubin 0.3 (0.2-1.0) mg/dL AST 121 H (15-37) IU/L ALT 85 H (14-63) IU/L Alkaline Phosphatase 116 (46-116) U/L Troponin I < 0.050 (0.000-0.056) ng/mL C-Reactive Protein 6.80 H (0.00-0.90) mg/dL B-Natriuretic Peptide (<100) PG/ML Total Protein 7.3 (6.4-8.2) g/dL Albumin 3.2 L (3.4-5.0) g/dL Globulin 4.1 H (2.6-4.0) g/dL Albumin/Globulin Ratio 0.8 L (0.9-1.6) Urine Color Urine Appearance Urine pH (5.0-8.0) Ur Specific [place] (1.001-1.035) Urine Protein (NEGATIVE) mg/dL Urine Glucose (UA) (NEGATIVE) mg/dL Urine Ketones (NEGATIVE) mg/dL Urine Occult Blood (NEGATIVE) Urine Nitrite (NEGATIVE) Urine Bilirubin (NEGATIVE) Urine Urobilinogen (<2.0) EU/dL Ur Leukocyte Esterase (NEGATIVE) Urine RBC (0-2/HPF) Urine WBC (0-5/HPF) Ur Epithelial Cells (NONE-FEW) Amorphous Sediment (NEGATIVE) Urine Bacteria (NEGATIVE) Urine Mucus (NONE-MOD) SARS-CoV-2 RNA (DEWAYNE) (NEGATIVE) 12/25/19 12/25/19 12/25/19 Range/Units 10:11 10:11 10:22 WBC (4.0-11.0) K/uL RBC (4.30-5.90) M/uL Hgb (12.0-16.0) g/dL Hct (36.0-46.0) % MCV (80.0-98.0) fL MCH (27.0-32.0) pg MCHC (31.0-37.0) g/dL RDW Std Deviation (28.0-62.0) fl RDW Coeff of Isrrael (11.0-15.0) % Plt Count (150-400) K/uL MPV (7.40-12.00) fL Neut % (Auto) (48.0-80.0) % Lymph % (Auto) (16.0-40.0) % [place] % (Auto) (0.0-15.0) % Eos % (Auto) (0.0-7.0) % Baso % (Auto) (0.0-1.5) % Neut # (Auto) (1.4-5.7) K/uL Lymph # (Auto) (0.6-2.4) K/uL [place] # (Auto) (0.0-0.8) K/uL Eos # (Auto) (0.0-0.7) K/uL Baso # (Auto) (0.0-0.1) K/uL Nucleated RBC % /100WBC Nucleated RBCs # K/uL ESR (0-19) mm/hr INR APTT (18.6-31.3) SEC D-Dimer, Quantitative (0.0-0.50) mg/L FEU VBG pH 7.42 H (7.31-7.41) VBG pCO2 47 H (35-45) mmHG VBG pO2 51 H (30-40) mmHG VBG HCO3 30 (22-30) mEq/L VBG Total CO2 28 L (41-51) mmol/L VBG Base Excess 5.0 H (-3.0-3.0) Lactate (0.20-2.00) mmol/L Sodium (136-145) mmol/L Potassium (3.5-5.1) mmol/L Chloride (98-107) mmol/L Carbon Dioxide (21.0-32.0) mmol/L BUN (7.0-18.0) mg/dL Creatinine (0.6-1.0) mg/dL Est Cr Clr Drug Dosing Estimated GFR (MDRD) ml/min Glucose (74-106) mg/dL Calcium (8.5-10.1) mg/dL Total Bilirubin (0.2-1.0) mg/dL AST (15-37) IU/L ALT (14-63) IU/L Alkaline Phosphatase (46-116) U/L Troponin I (0.000-0.056) ng/mL C-Reactive Protein (0.00-0.90) mg/dL B-Natriuretic Peptide 7 (<100) PG/ML Total Protein (6.4-8.2) g/dL Albumin (3.4-5.0) g/dL Globulin (2.6-4.0) g/dL Albumin/Globulin Ratio (0.9-1.6) Urine Color YELLOW Urine Appearance HAZY Urine pH 5.5 (5.0-8.0) Ur Specific [place] >= 1.030 (1.001-1.035) Urine Protein TRACE H (NEGATIVE) mg/dL Urine Glucose (UA) NEGATIVE (NEGATIVE) mg/dL Urine Ketones NEGATIVE (NEGATIVE) mg/dL Urine Occult Blood MODERATE H (NEGATIVE) Urine Nitrite POSITIVE H (NEGATIVE) Urine Bilirubin NEGATIVE (NEGATIVE) Urine Urobilinogen 1.0 (<2.0) EU/dL Ur Leukocyte Esterase NEGATIVE (NEGATIVE) Urine RBC 8-12 (0-2/HPF) Urine WBC 0-2 (0-5/HPF) Ur Epithelial Cells FEW (NONE-FEW) Amorphous Sediment FEW (NEGATIVE) Urine Bacteria FEW (NEGATIVE) Urine Mucus FEW (NONE-MOD) SARS-CoV-2 RNA (DEWAYNE) (NEGATIVE) 12/25/19 Range/Units 11:57 WBC (4.0-11.0) K/uL RBC (4.30-5.90) M/uL Hgb (12.0-16.0) g/dL Hct (36.0-46.0) % MCV (80.0-98.0) fL MCH (27.0-32.0) pg MCHC (31.0-37.0) g/dL RDW Std Deviation (28.0-62.0) fl RDW Coeff of Isrrael (11.0-15.0) % Plt Count (150-400) K/uL MPV (7.40-12.00) fL Neut % (Auto) (48.0-80.0) % Lymph % (Auto) (16.0-40.0) % [place] % (Auto) (0.0-15.0) % Eos % (Auto) (0.0-7.0) % Baso % (Auto) (0.0-1.5) % Neut # (Auto) (1.4-5.7) K/uL Lymph # (Auto) (0.6-2.4) K/uL [place] # (Auto) (0.0-0.8) K/uL Eos # (Auto) (0.0-0.7) K/uL Baso # (Auto) (0.0-0.1) K/uL Nucleated RBC % /100WBC Nucleated RBCs # K/uL ESR (0-19) mm/hr INR APTT (18.6-31.3) SEC D-Dimer, Quantitative (0.0-0.50) mg/L FEU VBG pH (7.31-7.41) VBG pCO2 (35-45) mmHG VBG pO2 (30-40) mmHG VBG HCO3 (22-30) mEq/L VBG Total CO2 (41-51) mmol/L VBG Base Excess (-3.0-3.0) Lactate (0.20-2.00) mmol/L Sodium (136-145) mmol/L Potassium (3.5-5.1) mmol/L Chloride (98-107) mmol/L Carbon Dioxide (21.0-32.0) mmol/L BUN (7.0-18.0) mg/dL Creatinine (0.6-1.0) mg/dL Est Cr Clr Drug Dosing Estimated GFR (MDRD) ml/min Glucose (74-106) mg/dL Calcium (8.5-10.1) mg/dL Total Bilirubin (0.2-1.0) mg/dL AST (15-37) IU/L ALT (14-63) IU/L Alkaline Phosphatase (46-116) U/L Troponin I (0.000-0.056) ng/mL C-Reactive Protein (0.00-0.90) mg/dL B-Natriuretic Peptide (<100) PG/ML Total Protein (6.4-8.2) g/dL Albumin (3.4-5.0) g/dL Globulin (2.6-4.0) g/dL Albumin/Globulin Ratio (0.9-1.6) Urine Color Urine Appearance Urine pH (5.0-8.0) Ur Specific [place] (1.001-1.035) Urine Protein (NEGATIVE) mg/dL Urine Glucose (UA) (NEGATIVE) mg/dL Urine Ketones (NEGATIVE) mg/dL Urine Occult Blood (NEGATIVE) Urine Nitrite (NEGATIVE) Urine Bilirubin (NEGATIVE) Urine Urobilinogen (<2.0) EU/dL Ur Leukocyte Esterase (NEGATIVE) Urine RBC (0-2/HPF) Urine WBC (0-5/HPF) Ur Epithelial Cells (NONE-FEW) Amorphous Sediment (NEGATIVE) Urine Bacteria (NEGATIVE) Urine Mucus (NONE-MOD) SARS-CoV-2 RNA (DEWAYNE) POSITIVE H (NEGATIVE) Result Diagrams: 12/25/19 10:11 12/25/19 10:11 Sepsis Event Note - Evaluation Sepsis Screening Result: Possible Severe Sepsis Risk - Focused Exam Vital Signs: Vital Signs Temp Pulse Resp BP Pulse Ox 12/25/19 14:30 92 115/64 100 12/25/19 13:45 77 100 12/25/19 13:37 75 112/68 93 L 12/25/19 13:26 77 119/65 93 L 12/25/19 13:06 72 104/68 97 12/25/19 12:39 99 100 12/25/19 12:07 96 116/60 94 L 12/25/19 11:36 82 104/68 95 12/25/19 10:18 95 12/25/19 10:15 98 12/25/19 10:13 36.4 C 105 H 19 110/70 64 L 12/25/19 10:12 96 12/25/19 10:08 97 - Problem List (1) Acute respiratory failure with hypoxia SNOMED Code(s): 08318261, 400078544 ICD Code: J96.01 - ACUTE RESPIRATORY FAILURE WITH HYPOXIA Status: Acute Current Visit: Yes (2) Cystitis SNOMED Code(s): 69036983 ICD Code: N30.90 - CYSTITIS, UNSPECIFIED WITHOUT HEMATURIA Status: Acute Current Visit: Yes (3) JEANNINE (acute kidney injury) SNOMED Code(s): 49303167, 03324561 ICD Code: N17.9 - ACUTE KIDNEY FAILURE, UNSPECIFIED Status: Acute Current Visit: Yes (4) COVID-19 virus infection SNOMED Code(s): 230690156 ICD Code: U07.1 - COVID-19 Status: Acute Current Visit: Yes Problem List Initiated/Reviewed/Updated: Yes Orders Last 24hrs: Active Orders 24 hr Category Date Time Status Admission Status [Patient Status] [ADT] Stat ADT 12/25/19 11:23 Active Cardiac Monitoring [RC] CONTINUOUS Care 12/25/19 10:17 Active Communication Order [RC] ROUTINE Care 12/25/19 14:38 Ordered EKG Documentation Completion [RC] STAT Care 12/25/19 10:17 Active Flutter Valve Therapy [RT Chest Physiotherapy] [RC] Care 12/25/19 14:38 Ordered ASDIRECTED Overnight Pulse Oximetry [RC] Click to Edit Care 12/25/19 10:18 Active Oxygen Therapy [RC] PRN Care 12/25/19 14:32 Ordered Oxygen Therapy, ED [RC] STAT Care 12/25/19 10:18 Active RT Incentive Spirometry [RC] ASDIRECTED Care 12/25/19 14:38 Ordered RT Post Treatment Assessment [RC] Click to Edit Care 12/25/19 14:37 Ordered RT Pre-Treatment Assessment [RC] Click to Edit Care 12/25/19 14:37 Ordered Up ad Petra [RC] ASDIRECTED Care 12/25/19 14:32 Ordered VTE/DVT Education [RC] PER UNIT ROUTINE Care 12/25/19 14:32 Ordered Vital Signs [RC] Q4H Care 12/25/19 14:32 Ordered Regular Diet [DIET] Diet 12/25/19 Lunch Ordered CBC WITH AUTO DIFF [HEME] AM Lab 12/26/19 05:11 Ordered COMPREHENSIVE METABOLIC PN,CMP [CHEM] AM Lab 12/26/19 05:11 Ordered CULTURE BLOOD [BC] Stat Lab 12/25/19 10:11 Received CULTURE BLOOD [BC] Stat Lab 12/25/19 10:39 Received CULTURE URINE [RM] Stat Lab 12/25/19 10:22 Received TYPE AND SCREEN [BBK] Stat Lab 12/25/19 14:06 Ordered Acetaminophen [TylenoL] Med 12/25/19 14:32 Ordered 650 mg PO Q4H PRN Albuterol/Ipratropium [Combivent Respimat] Med 12/25/19 14:45 Ordered See Dose Instructions INH Q6H Azithromycin [Zithromax] 500 mg Med 12/26/19 09:00 Ordered Sodium Chloride 0.9% [Normal Saline (AdvBag)] 250 ml IV DAILY Enoxaparin [Lovenox] Med 12/25/19 14:45 Ordered 40 mg SUBCUT Q24H Ondansetron [Zofran] Med 12/25/19 14:32 Ordered 4 mg IVPUSH Q4H PRN Pantoprazole [ProTONIX] Med 12/25/19 14:45 Ordered 40 mg PO DAILY Remdesivir (Eua) [Remdesivir (EUA)] 100 mg Med 12/26/19 14:45 Ordered Sodium Chloride 0.9% [Normal Saline] 100 ml IV Q24H Sodium Chloride 0.9% [Saline Flush] Med 12/25/19 10:17 Active 10 ml FLUSH ASDIRECTED PRN Sodium Chloride 0.9% [Saline Flush] Med 12/25/19 10:17 Active 2.5 ml FLUSH ASDIRECTED PRN cefTRIAXone [Rocephin in Dextrose,Iso-Osm 1 GM/50 ML] 1 Med 12/25/19 14:45 Ordered gm Premix Bag 1 bag IV Q24H dexAMETHasone Med 12/26/19 09:00 Ordered 6 mg PO DAILY Blood Culture x2 Reflex Set [OM.PC] Stat Oth 12/25/19 10:17 Ordered Pulse Oximetry Continuous Monitoring [OM.PC] Routine Oth 12/25/19 10:17 Ordered Saline Lock Insert [OM.PC] Stat Oth 12/25/19 10:17 Ordered Severe Sepsis Onset Time [OM.PC] Stat Oth 12/25/19 10:17 Ordered Resuscitation Status Routine Resus Stat 12/25/19 14:32 Ordered Medication Orders Acetaminophen (Tylenol) 650 mg PO Q4H PRN PRN Reason: Pain (Mild 1-3)/fever Albuterol/Ipratropium (Combivent Respimat) 0 gm INH Q6H [facility] Dexamethasone (Dexamethasone) 6 mg PO DAILY [facility] Enoxaparin Sodium (Lovenox) 40 mg SUBCUT Q24H [facility] Remdesivir 100 mg/ Sodium (Chloride) 100 mls @ 100 mls/hr IV Q24H [facility] Stop: 12/29/19 12:59 Azithromycin 500 mg/ Sodium (Chloride) 250 mls @ 250 mls/hr IV DAILY [facility] Ceftriaxone Sodium/Dextrose 1 (gm/ Premix) 50 mls @ 100 mls/hr IV Q24H [facility] Ondansetron HCl (Zofran) 4 mg IVPUSH Q4H PRN PRN Reason: Nausea Pantoprazole Sodium (Protonix) 40 mg PO DAILY [facility] Sodium Chloride (Saline Flush) 10 ml FLUSH ASDIRECTED PRN PRN Reason: Keep Vein Open Last Admin: 12/25/19 10:31 Dose: 10 ml Documented by: [id number] Sodium Chloride (Saline Flush) 2.5 ml FLUSH ASDIRECTED PRN PRN Reason: Keep Vein Open Last Admin: 12/25/19 10:31 Dose: 2.5 ml Documented by: [id number] Assessment/Plan Comment:: Assessment and Plan: 1. Acute hypoxic respiratory failure secondary to COVID-19 infection: - Admit to med/surg. Start supplemental oxygen PRN, dexamethasone 6 mg qd, remdesivir, Combivent, ceftriaxone and azithromycin. Ordered incentive spirometer and flutter valve. Will consider administering convalescent plasma if patient's oxygen requirement continues to increase. Patient is on prophylactic lovenox. - Patient given fact sheet for Remdesivir EUA use, side effects explained including hepatitis and anaphylaxis reaction, patient's consents to use. - Patient given fact sheet for convalescent plasma EUA use, side effects explained and patient consents to use if required. - CXR showed bilateral opacities. 2. Acute cystitis: - UA positive for nitrites and occult blood. Patient on IV ceftriaxone. 3. Intermittent confusion: - CT head done showed no acute findings. Patient is AOx3 currently and no focal neurological deficits appreciated. 4. JEANNINE: - Creatinine is 1.2, will continue to monitor. 5. DVT prophylaxis: - Lovenox 40 mg subcut qd. 6. Past medical history of depression and anxiety: - Continue home medications.
[2019-12-25] MEDS: Enoxaparin 40 MG/0.4 ML Syringe SUBCUT SCH (16:05)
[2019-12-25] MEDS: Pantoprazole 40 MG Tab.CR PO SCH (16:05)
[2019-12-25] MEDS: Albuterol/Ipratropium 4 GM Inhalation Spray INH SCH ×2 (16:06→20:32)
[2019-12-25] MEDS ORDERED: Non-Formulary Medication 1 Each (Zolpidem 10 MG) PO PRN (17:24)
[2019-12-26] MEDS: Albuterol/Ipratropium 4 GM Inhalation Spray INH SCH ×4 (04:00→20:38)
[2019-12-26 06:41] LABS: CARBON DIOXIDE,CO2 29.2 mmol/L (21.0-32.0); POTASSIUM,K 3.7 mmol/L (3.5-5.1)
[2019-12-26] MEDS: Pantoprazole 40 MG Tab.CR PO SCH (08:10)
[2019-12-26] MEDS: Escitalopram 10 MG Tab PO SCH (08:10)
[2019-12-26] MEDS: Dexamethasone 4 MG Tab PO SCH (08:11)
[2019-12-26] MEDS: Azithromycin 500 MG in Sodium Chloride 0.9% 250 ML IV SCH (08:14)
[2019-12-26] MEDS: cefTRIAXone 1 GM in Premix Bag 1 BAG IV SCH (10:21)
[2019-12-26] MEDS: REMDESIVIR (EUA) 100 MG in Sodium Chloride 0.9% 100 ML IV SCH (12:14)
--- NOTE | 2019-12-26 13:38 | PCM.PN ---
- General Info Date of Service: 12/26/19 - Review of Systems General: Reports: No Symptoms HEENT: Reports: No Symptoms Pulmonary: Reports: Shortness of Breath. Denies: Pleuritic Chest Pain, Cough, Wheezing Cardiovascular: Reports: No Symptoms Gastrointestinal: Reports: No Symptoms Genitourinary: Reports: No Symptoms Musculoskeletal: Reports: No Symptoms Skin: Reports: No Symptoms Neurological: Reports: No Symptoms Psychiatric: Reports: No Symptoms - Patient Data Vitals - Most Recent: Last Vital Signs Temp 97.3 F 12/26/19 11:09 Pulse 86 12/26/19 11:09 Resp 16 12/26/19 11:09 BP 109/57 L 12/26/19 11:09 Pulse Ox 93 L 12/26/19 11:09 Weight - Most Recent: 208 lb 1.862 oz I&O - Last 24 Hours: Intake & Output 12/25/19 12/26/19 12/26/19 22:59 06:59 14:59 Intake Total 0 450 Output Total 0 550 Balance 0 -100 Lab Results Last 24 Hours: Laboratory Results - last 24 hr 12/25/19 12/26/19 12/26/19 Range/Units 14:58 05:55 05:55 WBC 2.71 L (4.0-11.0) K/uL RBC 4.07 L (4.30-5.90) M/uL Hgb 11.9 L (12.0-16.0) g/dL Hct 37.7 (36.0-46.0) % MCV 92.6 (80.0-98.0) fL MCH 29.2 (27.0-32.0) pg MCHC 31.6 (31.0-37.0) g/dL RDW Std Deviation 43.1 (28.0-62.0) fl RDW Coeff of Isrrael 13 (11.0-15.0) % Plt Count 156 (150-400) K/uL MPV 10.90 (7.40-12.00) fL Neut % (Auto) 52.4 (48.0-80.0) % Lymph % (Auto) 34.3 (16.0-40.0) % [place] % (Auto) 13.3 (0.0-15.0) % Eos % (Auto) 0.0 (0.0-7.0) % Baso % (Auto) 0.0 (0.0-1.5) % Neut # (Auto) 1.4 (1.4-5.7) K/uL Lymph # (Auto) 0.9 (0.6-2.4) K/uL [place] # (Auto) 0.4 (0.0-0.8) K/uL Eos # (Auto) 0.0 (0.0-0.7) K/uL Baso # (Auto) 0.0 (0.0-0.1) K/uL Nucleated RBC % 0.0 /100WBC Nucleated RBCs # 0 K/uL Sodium 142 (136-145) mmol/L Potassium 3.7 (3.5-5.1) mmol/L Chloride 105 (98-107) mmol/L Carbon Dioxide 29.2 (21.0-32.0) mmol/L BUN 14 (7.0-18.0) mg/dL Creatinine 1.0 (0.6-1.0) mg/dL Est Cr Clr Drug Dosing 61.91 mL/min Estimated GFR (MDRD) 59.2 ml/min Glucose 129 H (74-106) mg/dL Calcium 7.8 L (8.5-10.1) mg/dL Total Bilirubin 0.2 (0.2-1.0) mg/dL AST 75 H (15-37) IU/L ALT 71 H (14-63) IU/L Alkaline Phosphatase 100 (46-116) U/L Total Protein 6.8 (6.4-8.2) g/dL Albumin 2.9 L (3.4-5.0) g/dL Globulin 3.9 (2.6-4.0) g/dL Albumin/Globulin Ratio 0.7 L (0.9-1.6) Blood Type A POSITIVE Antibody Screen NEGATIVE Bao Results Last 24 Hours: Microbiology 12/25/19 10:39 Aerobic Blood Culture - Preliminary Blood - Venous - Lab Draw NO GROWTH AFTER 1 DAY Anaerobic Blood Culture - Preliminary NO GROWTH AFTER 1 DAY 12/25/19 10:11 Aerobic Blood Culture - Preliminary Blood - Venous NO GROWTH AFTER 1 DAY Anaerobic Blood Culture - Preliminary NO GROWTH AFTER 1 DAY Med Orders - Current: Current Medications Acetaminophen (Tylenol) 650 mg PO Q4H PRN PRN Reason: Pain (Mild 1-3)/fever Albuterol/Ipratropium (Combivent Respimat) 0 gm INH Q6H [facility] Last Admin: 12/26/19 09:45 Dose: 1 puff Documented by: Dexamethasone (Dexamethasone) 6 mg PO DAILY [facility] Last Admin: 12/26/19 08:11 Dose: 6 mg Documented by: Enoxaparin Sodium (Lovenox) 40 mg SUBCUT Q24H [facility] Last Admin: 12/25/19 16:05 Dose: 40 mg Documented by: Escitalopram Oxalate (Lexapro) 20 mg PO DAILY [facility] Last Admin: 12/26/19 08:10 Dose: 20 mg Documented by: Remdesivir 100 mg/ Sodium (Chloride) 100 mls @ 100 mls/hr IV Q24H [facility] Stop: 12/29/19 12:59 Last Admin: 12/26/19 12:14 Dose: 100 mls/hr Documented by: Azithromycin 500 mg/ Sodium (Chloride) 250 mls @ 250 mls/hr IV DAILY [facility] Last Admin: 12/26/19 08:14 Dose: 250 mls/hr Documented by: Ceftriaxone Sodium/Dextrose 1 (gm/ Premix) 50 mls @ 100 mls/hr IV Q24H [facility] Last Admin: 12/26/19 10:21 Dose: 100 mls/hr Documented by: Ondansetron HCl (Zofran) 4 mg IVPUSH Q4H PRN PRN Reason: Nausea Pantoprazole Sodium (Protonix) 40 mg PO DAILY [facility] Last Admin: 12/26/19 08:10 Dose: 40 mg Documented by: Sodium Chloride (Saline Flush) 10 ml FLUSH ASDIRECTED PRN PRN Reason: Keep Vein Open Last Admin: 12/25/19 10:31 Dose: 10 ml Documented by: Sodium Chloride (Saline Flush) 2.5 ml FLUSH ASDIRECTED PRN PRN Reason: Keep Vein Open Last Admin: 12/25/19 10:31 Dose: 2.5 ml Documented by: Discontinued Medications Dexamethasone (Dexamethasone) 6 mg IVPUSH ONETIME ONE Stop: 12/25/19 10:20 Last Admin: 12/25/19 10:30 Dose: 6 mg Documented by: Ceftriaxone Sodium/Dextrose 1 (gm/ Premix) 50 mls @ 100 mls/hr IV ONETIME ONE Stop: 12/25/19 11:39 Last Admin: 12/25/19 11:16 Dose: 100 mls/hr Documented by: Remdesivir 200 mg/ Sodium (Chloride) 250 mls @ 250 mls/hr IV ONETIME ONE Stop: 12/25/19 12:59 Last Admin: 12/25/19 12:08 Dose: 250 mls/hr Documented by: Non-Formulary Medication (Zolpidem) 10 mg PO DAILY PRN PRN Reason: Anxiety - Exam General: Alert, Oriented, Cooperative, No Acute Distress HEENT: Pupils Equal, Pupils Reactive, EOMI, Mucous Membr. Moist/[place] Neck: Supple, No JVD Lungs: Clear to Auscultation, Crackles (fines crackles in lower lung hoover) Cardiovascular: Regular Rate, Regular Rhythm, No Murmurs GI/Abdominal Exam: Normal Bowel Sounds, Soft, Non-Tender, No Organomegaly, No Distention, No Abnormal Bruit, No Mass Extremities: Normal Inspection, Normal Range of Motion, Non-Tender, No Pedal Edema, Normal Capillary Refill Peripheral Pulses: 2+: Dorsalis Pedis (L), Dorsalis Pedis (R) Skin: Warm, Dry, Intact, Other (redness at IV site no signs of phlebitis ) Neurological: No New Focal Deficit Psy/Mental Status: Alert, Normal Affect, Normal Mood Sepsis Event Note - Evaluation Sepsis Screening Result: Possible Severe Sepsis Risk - Focused Exam Vital Signs: Vital Signs Temp Pulse Resp BP Pulse Ox 12/26/19 11:09 97.3 F 86 16 109/57 L 93 L 12/26/19 08:08 97.4 F 73 16 102/63 92 L 12/26/19 04:00 97.6 F 65 16 113/45 L 98 - Problem List & Annotations (1) AMS (altered mental status) SNOMED Code(s): 297512074 Code(s): R41.82 - ALTERED MENTAL STATUS, UNSPECIFIED Status: Acute C urrent Visit: Yes (2) JEANNINE (acute kidney injury) SNOMED Code(s): 85697984, 32536654 Code(s): N17.9 - ACUTE KIDNEY FAILURE, UNSPECIFIED Status: Acute Current Visit: Yes (3) Acute cystitis SNOMED Code(s): 79645488 Code(s): N30.00 - ACUTE CYSTITIS WITHOUT HEMATURIA Status: Acute Current Visit: Yes Qualifiers: Hematuria presence: with hematuria Qualified Code(s): N30.01 - Acute cystitis with hematuria (4) Acute respiratory failure with hypoxia SNOMED Code(s): 82458436, 418448997 Code(s): J96.01 - ACUTE RESPIRATORY FAILURE WITH HYPOXIA Status: Acute Current Visit: Yes (5) COVID-19 virus infection SNOMED Code(s): 116705082 Code(s): U07.1 - COVID-19 Status: Acute Current Visit: Yes - Problem List Review Problem List Initiated/Reviewed/Updated: Yes - Plan Plan:: Assessment and Plan: 1. Acute hypoxic respiratory failure secondary to COVID-19 infection: - Improved, - supplemental oxygen PRN; yesterday was on 6L's weaned to 4L's with O2 sat 93%, continue to wean as tolerated - dexamethasone 6 mg qd for total of 10 days - remdesivir 4 more days of 100 mg - Combivent Q4HR, - ceftriaxone and azithromycin for possible pneumonia with elevated ESR and CRP, Chest X-ray with diffuse interstitial and b/l opacities likely secondary to Covid 19. - Ordered incentive spirometer and flutter valve. - Pt consented for convalescent plasma; but condition has improved therefore will not transfuse at this time since it is experimental and the risk 's outweigh current benefit. - Patient is on prophylactic lovenox. - Patient given fact sheet for Remdesivir EUA use, side effects explained including hepatitis and anaphylaxis reaction, patient's consents to use. 2. Acute cystitis: - dysuria - UA positive for nitrites and occult blood. Patient on IV ceftriaxone. 3. Intermittent confusion: - Resolved ; CT head done showed no acute findings. Patient is AOx3 currently and no focal neurological deficits appreciated. 4. JEANNINE: - Resolved, continue to monitor CMP daily. 5. DVT prophylaxis: - Lovenox 40 mg subcut qd. 6. Past medical history of depression and anxiety: - Continue home medications.
[2019-12-26] MEDS: Enoxaparin 40 MG/0.4 ML Syringe SUBCUT SCH (15:01)
[2019-12-27] MEDS: Albuterol/Ipratropium 4 GM Inhalation Spray INH SCH ×4 (03:39→23:19)
[2019-12-27 06:33] LABS: BLOOD UREA NITROGEN,BUN 14 mg/dL (7.0-18.0); CARBON DIOXIDE,CO2 29.7 mmol/L (21.0-32.0); CHLORIDE,CL 106 mmol/L (98-107); GLUCOSE RANDOM 124 mg/dL (74-106); POTASSIUM,K 3.3 mmol/L (3.5-5.1); SODIUM,NA 143 mmol/L (136-145)
[2019-12-27] MEDS: Pantoprazole 40 MG Tab.CR PO SCH (09:02)
[2019-12-27] MEDS: Dexamethasone 4 MG Tab PO SCH (09:03)
[2019-12-27] MEDS: Azithromycin 500 MG in Sodium Chloride 0.9% 250 ML IV SCH (09:05)
[2019-12-27] MEDS: Escitalopram 10 MG Tab PO SCH (09:45)
[2019-12-27] MEDS: cefTRIAXone 1 GM in Premix Bag 1 BAG IV SCH (10:46)
[2019-12-27] MEDS ORDERED: Potassium Chloride 20 MEQ Tab.ER PO ONE (11:27)
[2019-12-27] MEDS: REMDESIVIR (EUA) 100 MG in Sodium Chloride 0.9% 100 ML IV SCH (11:35)
--- NOTE | 2019-12-27 11:50 | PCM.PN ---
- General Info Date of Service: 12/27/19 Subjective Update: 49 y/o F admitted for Acute Respiratory Failure 2/2/ COVID 19, and being treated for an acute cystitis. States that she is feeling better, less short of breath with activity. Her dysuria and diarrhea have resolved. Seen and examined at bedside after returning from the bathroom, appearing comfortable on the 3L's oxygen. - Review of Systems General: Reports: No Symptoms HEENT: Reports: No Symptoms Pulmonary: Reports: No Symptoms Cardiovascular: Reports: No Symptoms Gastrointestinal: Reports: No Symptoms Genitourinary: Reports: No Symptoms Musculoskeletal: Reports: No Symptoms Skin: Reports: No Symptoms Neurological: Reports: No Symptoms Psychiatric: Reports: No Symptoms - Patient Data Vitals - Most Recent: Last Vital Signs Temp 97.3 F 12/27/19 08:00 Pulse 69 12/27/19 08:00 Resp 20 12/27/19 08:00 BP 115/71 12/27/19 08:00 Pulse Ox 92 L 12/27/19 08:00 Weight - Most Recent: 208 lb 1.862 oz I&O - Last 24 Hours: Intake & Output 12/26/19 12/27/19 12/27/19 22:59 06:59 14:59 Intake Total 1200 550 Output Total 600 900 Balance 600 -350 Lab Results Last 24 Hours: Laboratory Results - last 24 hr 12/27/19 12/27/19 Range/Units 05:50 05:50 WBC 4.84 (4.0-11.0) K/uL RBC 3.93 L (4.30-5.90) M/uL Hgb 11.4 L (12.0-16.0) g/dL Hct 36.7 (36.0-46.0) % MCV 93.4 (80.0-98.0) fL MCH 29.0 (27.0-32.0) pg MCHC 31.1 (31.0-37.0) g/dL RDW Std Deviation 43.2 (28.0-62.0) fl RDW Coeff of Isrrael 13 (11.0-15.0) % Plt Count 182 (150-400) K/uL MPV 10.80 (7.40-12.00) fL Neut % (Auto) 62.8 (48.0-80.0) % Lymph % (Auto) 24.0 (16.0-40.0) % [place] % (Auto) 13.2 (0.0-15.0) % Eos % (Auto) 0.0 (0.0-7.0) % Baso % (Auto) 0.0 (0.0-1.5) % Neut # (Auto) 3.0 (1.4-5.7) K/uL Lymph # (Auto) 1.2 (0.6-2.4) K/uL [place] # (Auto) 0.6 (0.0-0.8) K/uL Eos # (Auto) 0.0 (0.0-0.7) K/uL Baso # (Auto) 0.0 (0.0-0.1) K/uL Nucleated RBC % 0.0 /100WBC Nucleated RBCs # 0 K/uL Sodium 143 (136-145) mmol/L Potassium 3.3 L (3.5-5.1) mmol/L Chloride 106 (98-107) mmol/L Carbon Dioxide 29.7 (21.0-32.0) mmol/L BUN 14 (7.0-18.0) mg/dL Creatinine 0.9 (0.6-1.0) mg/dL Est Cr Clr Drug Dosing 68.79 mL/min Estimated GFR (MDRD) > 60.0 ml/min Glucose 124 H (74-106) mg/dL Calcium 7.7 L (8.5-10.1) mg/dL Total Bilirubin 0.2 (0.2-1.0) mg/dL AST 45 H (15-37) IU/L ALT 56 (14-63) IU/L Alkaline Phosphatase 82 (46-116) U/L Total Protein 6.2 L (6.4-8.2) g/dL Albumin 2.7 L (3.4-5.0) g/dL Globulin 3.5 (2.6-4.0) g/dL Albumin/Globulin Ratio 0.8 L (0.9-1.6) Bao Results Last 24 Hours: Microbiology 12/25/19 10:22 Urine Culture - Final Urine, Voided MIXED STEPHAN >100,000 CFU/ML 12/25/19 10:39 Aerobic Blood Culture - Preliminary Blood - Venous - Lab Draw NO GROWTH AFTER 2 DAYS Anaerobic Blood Culture - Preliminary NO GROWTH AFTER 2 DAYS 12/25/19 10:11 Aerobic Blood Culture - Preliminary Blood - Venous NO GROWTH AFTER 2 DAYS Anaerobic Blood Culture - Preliminary NO GROWTH AFTER 2 DAYS Med Orders - Current: Current Medications Acetaminophen (Tylenol) 650 mg PO Q4H PRN PRN Reason: Pain (Mild 1-3)/fever Albuterol/Ipratropium (Combivent Respimat) 0 gm INH Q6H [facility] Last Admin: 12/27/19 10:45 Dose: 1 puff Documented by: Dexamethasone (Dexamethasone) 6 mg PO DAILY [facility] Last Admin: 12/27/19 09:03 Dose: 6 mg Documented by: Enoxaparin Sodium (Lovenox) 40 mg SUBCUT Q24H [facility] Last Admin: 12/26/19 15:01 Dose: 40 mg Documented by: Escitalopram Oxalate (Lexapro) 20 mg PO DAILY [facility] Last Admin: 12/27/19 09:45 Dose: 20 mg Documented by: Remdesivir 100 mg/ Sodium (Chloride) 100 mls @ 100 mls/hr IV Q24H [facility] Stop: 12/29/19 12:59 Last Admin: 12/27/19 11:35 Dose: 100 mls/hr Documented by: Azithromycin 500 mg/ Sodium (Chloride) 250 mls @ 250 mls/hr IV DAILY [facility] Last Admin: 12/27/19 09:05 Dose: 250 mls/hr Documented by: Ceftriaxone Sodium/Dextrose 1 (gm/ Premix) 50 mls @ 100 mls/hr IV Q24H [facility] Last Admin: 12/27/19 10:46 Dose: 100 mls/hr Documented by: Ondansetron HCl (Zofran) 4 mg IVPUSH Q4H PRN PRN Reason: Nausea Pantoprazole Sodium (Protonix) 40 mg PO DAILY [facility] Last Admin: 12/27/19 09:02 Dose: 40 mg Documented by: Sodium Chloride (Saline Flush) 10 ml FLUSH ASDIRECTED PRN PRN Reason: Keep Vein Open Last Admin: 12/25/19 10:31 Dose: 10 ml Documented by: Sodium Chloride (Saline Flush) 2.5 ml FLUSH ASDIRECTED PRN PRN Reason: Keep Vein Open Last Admin: 12/25/19 10:31 Dose: 2.5 ml Documented by: Discontinued Medications Dexamethasone (Dexamethasone) 6 mg IVPUSH ONETIME ONE Stop: 12/25/19 10:20 Last Admin: 12/25/19 10:30 Dose: 6 mg Documented by: Ceftriaxone Sodium/Dextrose 1 (gm/ Premix) 50 mls @ 100 mls/hr IV ONETIME ONE Stop: 12/25/19 11:39 Last Admin: 12/25/19 11:16 Dose: 100 mls/hr Documented by: Remdesivir 200 mg/ Sodium (Chloride) 250 mls @ 250 mls/hr IV ONETIME ONE Stop: 12/25/19 12:59 Last Admin: 12/25/19 12:08 Dose: 250 mls/hr Documented by: Non-Formulary Medication (Zolpidem) 10 mg PO DAILY PRN PRN Reason: Anxiety Potassium Chloride (Klor-Con M20) 40 meq PO ONETIME ONE Stop: 12/27/19 11:28 - Exam Quality Assessment: Supplemental Oxygen (3L's sating above 92%) General: Alert, Oriented, Cooperative, No Acute Distress HEENT: Pupils Equal, Pupils Reactive, EOMI, Mucous Membr. Moist/[place] Neck: Supple, Trachea Midline, No JVD Lungs: Clear to Auscultation, Normal Respiratory Effort Cardiovascular: Regular Rate, Regular Rhythm, No Murmurs GI/Abdominal Exam: Normal Bowel Sounds, Soft, Non-Tender, No Distention. No: Guarding, Rigid, Rebound Back Exam: Normal Inspection, Full Range of Motion. No: CVA Tenderness (L), CVA Tenderness (R) Extremities: Normal Inspection, Normal Range of Motion, No Pedal Edema, Normal Capillary Refill Peripheral Pulses: 2+: Dorsalis Pedis (L), Dorsalis Pedis (R) Skin: Warm, Dry, Intact Neurological: No New Focal Deficit, Normal Speech, Normal Tone Psy/Mental Status: Alert, Normal Affect, Normal Mood Sepsis Event Note - Evaluation Sepsis Screening Result: No Definite Risk - Focused Exam Vital Signs: Vital Signs Temp Pulse Resp BP Pulse Ox Pulse Ox 12/27/19 08:00 97.3 F 69 20 115/71 92 L 12/27/19 06:00 92 L 12/27/19 03:44 96.7 F L 79 18 113/73 91 L 12/26/19 23:50 97.6 F 75 16 110/64 93 L - Problem List & Annotations (1) AMS (altered mental status) SNOMED Code(s): 457521477 Code(s): R41.82 - ALTERED MENTAL STATUS, UNSPECIFIED Status: Acute Current Visit: Yes (2) Acute cystitis SNOMED Code(s): 19378548 Code(s): N30.00 - ACUTE CYSTITIS WITHOUT HEMATURIA Status: Acute Current Visit: Yes Qualifiers: Hematuria presence: with hematuria Qualified Code(s): N30.01 - Acute cystitis with hematuria (3) Acute respiratory failure with hypoxia SNOMED Code(s): 20294172, 348089511 Code(s): J96.01 - ACUTE RESPIRATORY FAILURE WITH HYPOXIA Status: Acute Current Visit: Yes (4) COVID-19 virus infection SNOMED Code(s): 971756421 Code(s): U07.1 - COVID-19 Status: Acute Current Visit: Yes - Problem List Review Problem List Initiated/Reviewed/Updated: Yes - My Orders Last 24 Hours: My Active Orders 12/28/19 05:11 CBC WITH AUTO DIFF [HEME] AM CMP [COMPREHENSIVE METABOLIC PN,CMP] [CHEM] AM - Plan Plan:: Assessment and Plan: 1. Acute hypoxic respiratory failure secondary to COVID-19 infection: - Improved, no longer short of breath with activity - supplemental oxygen PRN; yesterday was on 3L with O2 sat 93%, continue to wean as tolerated - dexamethasone 6 mg qd for total of 10 days - remdesivir 2 more days of 100 mg - Combivent Q4HR, - ceftriaxone and azithromycin for possible pneumonia with elevated ESR and CRP, Chest X-ray with diffuse interstitial and b/l opacities likely secondary to Covid 19. - Ordered incentive spirometer and flutter valve, acapella - Pt consented for convalescent plasma; but condition has improved therefore will not transfuse at this time since it is experimental and the risk 's o utweigh current benefit. - Patient is on prophylactic lovenox. - Patient given fact sheet for Remdesivir EUA use, side effects explained including hepatitis and anaphylaxis reaction, patient's consents to use. 2. Acute cystitis: - dysuria has resolved - UA was positive for nitrites and occult blood. Continue patient on IV ceftriaxone. 3. Hypokalemia: 3.3, replete PO 40meq 4. DVT prophylaxis: - Lovenox 40 mg subcut qd. 5. Past medical history of depression and anxiety: - Continue home medications.
[2019-12-27] MEDS: Enoxaparin 40 MG/0.4 ML Syringe SUBCUT SCH (15:20)
[2019-12-28] MEDS: Albuterol/Ipratropium 4 GM Inhalation Spray INH SCH ×2 (06:29→11:41)
[2019-12-28 07:30] LABS: CARBON DIOXIDE,CO2 32.3 mmol/L (21.0-32.0); POTASSIUM,K 3.9 mmol/L (3.5-5.1)
[2019-12-28] MEDS: Escitalopram 10 MG Tab PO SCH (08:20)
[2019-12-28] MEDS: Dexamethasone 4 MG Tab PO SCH (08:20)
[2019-12-28] MEDS: Pantoprazole 40 MG Tab.CR PO SCH (08:20)
[2019-12-28] MEDS: Azithromycin 500 MG in Sodium Chloride 0.9% 250 ML IV SCH (08:22)
[2019-12-28] MEDS: cefTRIAXone 1 GM in Premix Bag 1 BAG IV SCH (10:46)
[2019-12-28] MEDS ORDERED: ALPRAZolam 0.5 MG Tab PO PRN (11:10)
[2019-12-28] MEDS ORDERED: ARIPiprazole 10 MG Tab PO SCH (11:15)
[2019-12-28] MEDS: REMDESIVIR (EUA) 100 MG in Sodium Chloride 0.9% 100 ML IV SCH (11:34)
[2019-12-28] MEDS: Enoxaparin 40 MG/0.4 ML Syringe SUBCUT SCH (14:05)
--- NOTE | 2019-12-28 14:05 | PCM.PN ---
- General Info Date of Service: 12/28/19 - Patient Data Vitals - Most Recent: Last Vital Signs Temp 97.8 F 12/28/19 11:38 Pulse 71 12/28/19 13:01 Resp 20 12/28/19 11:38 BP 119/75 12/28/19 11:38 Pulse Ox 94 L 12/28/19 13:16 Weight - Most Recent: 208 lb 1.862 oz I&O - Last 24 Hours: Intake & Output 12/27/19 12/28/19 12/28/19 22:59 06:59 14:59 Intake Total 1400 900 300 Output Total 900 550 Balance 500 350 300 Lab Results Last 24 Hours: Laboratory Results - last 24 hr 12/28/19 12/28/19 Range/Units 06:47 06:47 WBC 5.51 (4.0-11.0) K/uL RBC 4.20 L (4.30-5.90) M/uL Hgb 12.2 (12.0-16.0) g/dL Hct 39.6 (36.0-46.0) % MCV 94.3 (80.0-98.0) fL MCH 29.0 (27.0-32.0) pg MCHC 30.8 L (31.0-37.0) g/dL RDW Std Deviation 43.9 (28.0-62.0) fl RDW Coeff of [place] 13 (11.0-15.0) % Plt Count 205 (150-400) K/uL MPV 10.40 (7.40-12.00) fL Neut % (Auto) 55.3 (48.0-80.0) % Lymph % (Auto) 32.7 (16.0-40.0) % [place] % (Auto) 12.0 (0.0-15.0) % Eos % (Auto) 0.0 (0.0-7.0) % Baso % (Auto) 0.0 (0.0-1.5) % Neut # (Auto) 3.1 (1.4-5.7) K/uL Lymph # (Auto) 1.8 (0.6-2.4) K/uL [place] # (Auto) 0.7 (0.0-0.8) K/uL Eos # (Auto) 0.0 (0.0-0.7) K/uL Baso # (Auto) 0.0 (0.0-0.1) K/uL Nucleated RBC % 0.0 /100WBC Nucleated RBCs # 0 K/uL Sodium 146 H (136-145) mmol/L Potassium 3.9 (3.5-5.1) mmol/L Chloride 107 (98-107) mmol/L Carbon Dioxide 32.3 H (21.0-32.0) mmol/L BUN 16 (7.0-18.0) mg/dL Creatinine 1.0 (0.6-1.0) mg/dL Est Cr Clr Drug Dosing 61.91 mL/min Estimated GFR (MDRD) 59.2 ml/min Glucose 109 H (74-106) mg/dL Calcium 8.0 L (8.5-10.1) mg/dL Total Bilirubin 0.2 (0.2-1.0) mg/dL AST 31 (15-37) IU/L ALT 48 (14-63) IU/L Alkaline Phosphatase 81 (46-116) U/L Total Protein 6.6 (6.4-8.2) g/dL Albumin 2.7 L (3.4-5.0) g/dL Globulin 3.9 (2.6-4.0) g/dL Albumin/Globulin Ratio 0.7 L (0.9-1.6) Bao Results Last 24 Hours: Microbiology 12/25/19 10:39 Aerobic Blood Culture - Preliminary Blood - Venous - Lab Draw NO GROWTH AFTER 3 DAYS Anaerobic Blood Culture - Preliminary NO GROWTH AFTER 3 DAYS 12/25/19 10:11 Aerobic Blood Culture - Preliminary Blood - Venous NO GROWTH AFTER 3 DAYS Anaerobic Blood Culture - Preliminary NO GROWTH AFTER 3 DAYS 12/25/19 10:22 Urine Culture - Final Urine, Voided MIXED STEPHAN >100,000 CFU/ML Med Orders - Current: Current Medications Acetaminophen (Tylenol) 650 mg PO Q4H PRN PRN Reason: Pain (Mild 1-3)/fever Albuterol/Ipratropium (Combivent Respimat) 0 gm INH Q6H [facility] Last Admin: 12/28/19 11:41 Dose: 1 puff Documented by: Alprazolam (Xanax) 0.5 mg PO DAILY PRN PRN Reason: Anxiety Aripiprazole (Abilify) 10 mg PO DAILY [facility] Last Admin: 12/28/19 11:33 Dose: 10 mg Documented by: Dexamethasone (Dexamethasone) 6 mg PO DAILY [facility] Last Admin: 12/28/19 08:20 Dose: 6 mg Documented by: Enoxaparin Sodium (Lovenox) 40 mg SUBCUT Q24H [facility] Last Admin: 12/27/19 15:20 Dose: 40 mg Documented by: Escitalopram Oxalate (Lexapro) 20 mg PO DAILY [facility] Last Admin: 12/28/19 08:20 Dose: 20 mg Documented by: Remdesivir 100 mg/ Sodium (Chloride) 100 mls @ 100 mls/hr IV Q24H [facility] Stop: 12/29/19 12:59 Last Admin: 12/28/19 11:34 Dose: 100 mls/hr Documented by: Azithromycin 500 mg/ Sodium (Chloride) 250 mls @ 250 mls/hr IV DAILY [facility] Last Admin: 12/28/19 08:22 Dose: 250 mls/hr Documented by: Ceftriaxone Sodium/Dextrose 1 (gm/ Premix) 50 mls @ 100 mls/hr IV Q24H [facility] Last Admin: 12/28/19 10:46 Dose: 100 mls/hr Documented by: Ondansetron HCl (Zofran) 4 mg IVPUSH Q4H PRN PRN Reason: Nausea Pantoprazole Sodium (Protonix) 40 mg PO DAILY [facility] Last Admin: 12/28/19 08:20 Dose: 40 mg Documented by: Sodium Chloride (Saline Flush) 10 ml FLUSH ASDIRECTED PRN PRN Reason: Keep Vein Open Last Admin: 12/25/19 10:31 Dose: 10 ml Documented by: Sodium Chloride (Saline Flush) 2.5 ml FLUSH ASDIRECTED PRN PRN Reason: Keep Vein Open Last Admin: 12/25/19 10:31 Dose: 2.5 ml Documented by: Discontinued Medications Albuterol/Ipratropium (Combivent Respimat) 0 gm INH Q6H [facility] Last Admin: 12/27/19 10:45 Dose: 1 puff Documented by: Dexamethasone (Dexamethasone) 6 mg IVPUSH ONETIME ONE Stop: 12/25/19 10:20 Last Admin: 12/25/19 10:30 Dose: 6 mg Documented by: Ceftriaxone Sodium/Dextrose 1 (gm/ Premix) 50 mls @ 100 mls/hr IV ONETIME ONE Stop: 12/25/19 11:39 Last Admin: 12/25/19 11:16 Dose: 100 mls/hr Documented by: Remdesivir 200 mg/ Sodium (Chloride) 250 mls @ 250 mls/hr IV ONETIME ONE Stop: 12/25/19 12:59 Last Admin: 12/25/19 12:08 Dose: 250 mls/hr Documented by: Non-Formulary Medication (Zolpidem) 10 mg PO DAILY PRN PRN Reason: Anxiety Potassium Chloride (Klor-Con M20) 40 meq PO ONETIME ONE Stop: 12/27/19 11:28 Last Admin: 12/27/19 12:28 Dose: 40 meq Documented by: Sepsis Event Note - Evaluation Sepsis Screening Result: No Definite Risk - Focused Exam Vital Signs: Vital Signs Temp Pulse Resp BP Pulse Ox 12/28/19 13:16 94 L 12/28/19 13:01 71 99 12/28/19 12:56 98 12/28/19 11:38 97.8 F 66 20 119/75 96 12/28/19 08:30 97.3 F 65 18 106/68 94 L 12/28/19 04:00 97.2 F 60 18 122/73 91 L - Problem List & Annotations (1) AMS (altered mental status) SNOMED Code(s): 425532819 Code(s): R41.82 - ALTERED MENTAL STATUS, UNSPECIFIED Status: Acute Current Visit: Yes (2) Acute cystitis SNOMED Code(s): 25966027 Code(s): N30.00 - ACUTE CYSTITIS WITHOUT HEMATURIA Status: Acute Current Visit: Yes Qualifiers: Hematuria presence: with hematuria Qualified Code(s): N30.01 - Acute cystitis with hematuria (3) Acute respiratory failure with hypoxia SNOMED Code(s): 89187616, 666162685 Code(s): J96.01 - ACUTE RESPIRATORY FAILURE WITH HYPOXIA Status: Acute Current Visit: Yes (4) COVID-19 virus infection SNOMED Code(s): 101375991 Code(s): U07.1 - COVID-19 Status: Acute Current Visit: Yes - Plan Plan:: Assessment and Plan: 1. Acute hypoxic respiratory failure secondary to COVID-19 infection: - Improved, no longer short of breath with activity - supplemental oxygen PRN; yesterday was on 3L with O2 sat 93%, continue to wean as tolerated - dexamethasone 6 mg qd for total of 10 days - remdesivir 2 more days of 100 mg - Combivent Q4HR, - ceftriaxone and azithromycin for possible pneumonia with elevated ESR and CRP, Chest X-ray with diffuse interstitial and b/l opacities likely secondary to Covid 19. - Ordered incentive spirometer and flutter valve, acapella - Pt consented for convalescent plasma; but condition has improved therefore will not transfuse at this time since it is experimental and the risk 's outweigh current benefit. - Patient is on prophylactic lovenox. - Patient given fact sheet for Remdesivir EUA use, side effects explained including hepatitis and anaphylaxis reaction, patient's consents to use. 2. Acute cystitis: - dysuria has resolved - UA was positive for nitrites and occult blood. Continue patient on IV ceftriaxone. 3. Hypokalemia: 3.3, replete PO 40meq 4. DVT prophylaxis: - Lovenox 40 mg subcut qd. 5. Past medical history of depression and anxiety: - Continue home medications.
--- NOTE | 2019-12-28 15:32 | PCM.DCSUM1 ---
<Doris Elliott - Last Filed: 12/28/19 15:42> Discharge Summary - Hospital Course Brief History: 49-year-old female presents complaining of shortness of breath and cough. She tested positive for COVID-19 approximately 1 week in [place], [place]. She has PMH of depression and anxiety. She reports being sick for about 3-4 days before being tested positive for COVID-19 1 week ago. She came to the hospital today because her breathing, cough and fatigue became much worse. She also reports having diarrhea and pain on urination. Patient's significant other also reported patient has appeared confused at times. In the ER, patient requiring 6 L supplemental oxygen via NC. CXR showed b/l opacities. WBC 2.87, creatinine 1.2, lactate normal, ESR and CRP were elevated and D-dimer was normal. Blood cultures were obtained. UA positive for nitrites and occult blood. CT head was unremarkable. EKG was unremarkable. Patient given dose of dexamethasone, remdesivir and IV ceftriaxone. She was admitted for further evaluation and treatment. Diagnosis: Stroke: No - Discharge Data Discharge Date: 12/28/19 Discharge Disposition: Home, Self-Care 01 Condition: Good - Referral to Home Health Primary Care Physician: PCP Unknown - Discharge Diagnosis/Problem(s) (1) AMS (altered mental status) SNOMED Code(s): 135244287 ICD Code: R41.82 - ALTERED MENTAL STATUS, UNSPECIFIED Status: Acute (2) Acute cystitis SNOMED Code(s): 37750584 ICD Code: N30.00 - ACUTE CYSTITIS WITHOUT HEMATURIA Status: Acute Qualifiers: Hematuria presence: with hematuria Qualified Code(s): N30.01 - Acute cystitis with hematuria (3) Acute respiratory failure with hypoxia SNOMED Code(s): 69160947, 503596825 ICD Code: J96.01 - ACUTE RESPIRATORY FAILURE WITH HYPOXIA Status: Acute (4) COVID-19 virus infection SNOMED Code(s): 322369188 ICD Code: U07.1 - COVID-19 Status: Acute - Patient Summary/Data Hospital Course: Was admitted with acute respiratory failure secondary to Covid 19. Requring suppelental oxygen, given dexamethaone, 10 day course, started on antibiotis, Remdesivir 4x days, Q4H Combivent. Incentive spiromentry was provided. Weaned patient onto room air as tolerated. Pt currently on R.A tolerating well 94%, with activity/ exertion well above 92% per ptrial prior to discharge. Pt is medically stable. Will be discharged home with 6 more days of 6mg Dexamethasone, on antibiotics Levaquin for 7 days. Continue with Aspirin 81 mg for 1 month. - Patient Instructions Diet: Regular Diet as Tolerated Activity: As Tolerated - Discharge Plan *PRESCRIPTION DRUG MONITORING PROGRAM REVIEWED*: No *COPY OF PRESCRIPTION DRUG MONITORING REPORT IN PATIENT BRYAN: No Prescriptions/Med Rec: dexAMETHasone [Dexamethasone] 6 mg PO DAILY 6 Days tablet Home Medications: Home Meds ALPRAZolam [Xanax] 0.5 mg PO DAILY PRN 11/23/18 [History] Escitalopram [Lexapro] 20 mg PO DAILY 11/23/18 [History] Zolpidem [Ambien] 10 mg PO DAILY PRN 11/23/18 [History] ARIPiprazole [Abilify] 10 mg PO DAILY 12/27/19 [History] dexAMETHasone [Dexamethasone] 6 mg PO DAILY 6 Days tablet 12/28/19 [Rx] Patient Handouts: COVID-19 Frequently Asked Questions, COVID-19: How to Protect Yourself and Others - CDC, Levofloxacin tablets, Aspirin, ASA oral tablets, Dexamethasone tablets Referrals: Zoraida Floyd NP [Ordering Only Provider] - 01/04/20 9:15 am (Please bring your insurance cards, your identification and your own facemask.) - Discharge Summary/Plan Comment DC Time >30 min.: No - Patient Data Vitals - Most Recent: Last Vital Signs Temp 97.8 F 12/28/19 11:38 Pulse 71 12/28/19 13:01 Resp 20 12/28/19 11:38 BP 119/75 12/28/19 11:38 Pulse Ox 94 L 12/28/19 14:06 Weight - Most Recent: 94.4 kg I&O - Last 24 hours: Intake & Output 12/28/19 12/28/19 12/28/19 06:59 14:59 22:59 Intake Total 900 300 Output Total 550 Balance 350 300 Lab Results - Last 24 hrs: Laboratory Results - last 24 hr 12/28/19 12/28/19 Range/Units 06:47 06:47 WBC 5.51 (4.0-11.0) K/uL RBC 4.20 L (4.30-5.90) M/uL Hgb 12.2 (12.0-16.0) g/dL Hct 39.6 (36.0-46.0) % MCV 94.3 (80.0-98.0) fL MCH 29.0 (27.0-32.0) pg MCHC 30.8 L (31.0-37.0) g/dL RDW Std Deviation 43.9 (28.0-62.0) fl RDW Coeff of Isrrael 13 (11.0-15.0) % Plt Count 205 (150-400) K/uL MPV 10.40 (7.40-12.00) fL Neut % (Auto) 55.3 (48.0-80.0) % Lymph % (Auto) 32.7 (16.0-40.0) % Ness % (Auto) 12.0 (0.0-15.0) % Eos % (Auto) 0.0 (0.0-7.0) % Baso % (Auto) 0.0 (0.0-1.5) % Neut # (Auto) 3.1 (1.4-5.7) K/uL Lymph # (Auto) 1.8 (0.6-2.4) K/uL Ness # (Auto) 0.7 (0.0-0.8) K/uL Eos # (Auto) 0.0 (0.0-0.7) K/uL Baso # (Auto) 0.0 (0.0-0.1) K/uL Nucleated RBC % 0.0 /100WBC Nucleated RBCs # 0 K/uL Sodium 146 H (136-145) mmol/L Potassium 3.9 (3.5-5.1) mmol/L Chloride 107 (98-107) mmol/L Carbon Dioxide 32.3 H (21.0-32.0) mmol/L BUN 16 (7.0-18.0) mg/dL Creatinine 1.0 (0.6-1.0) mg/dL Est Cr Clr Drug Dosing 61.91 mL/min Estimated GFR (MDRD) 59.2 ml/min Glucose 109 H (74-106) mg/dL Calcium 8.0 L (8.5-10.1) mg/dL Total Bilirubin 0.2 (0.2-1.0) mg/dL AST 31 (15-37) IU/L ALT 48 (14-63) IU/L Alkaline Phosphatase 81 (46-116) U/L Total Protein 6.6 (6.4-8.2) g/dL Albumin 2.7 L (3.4-5.0) g/dL Globulin 3.9 (2.6-4.0) g/dL Albumin/Globulin Ratio 0.7 L (0.9-1.6) MARTITA Results - Last 24 hrs: Microbiology 12/25/19 10:39 Aerobic Blood Culture - Preliminary Blood - Venous - Lab Draw NO GROWTH AFTER 3 DAYS Anaerobic Blood Culture - Preliminary NO GROWTH AFTER 3 DAYS 12/25/19 10:11 Aerobic Blood Culture - Preliminary Blood - Venous NO GROWTH AFTER 3 DAYS Anaerobic Blood Culture - Preliminary NO GROWTH AFTER 3 DAYS 12/25/19 10:22 Urine Culture - Final Urine, Voided MIXED STEPHAN >100,000 CFU/ML Med Orders - Current: Current Medications Acetaminophen (Tylenol) 650 mg PO Q4H PRN PRN Reason: Pain (Mild 1-3)/fever Albuterol/Ipratropium (Combivent Respimat) 0 gm INH Q6H [facility] Last Admin: 12/28/19 11:41 Dose: 1 puff Documented by: Alprazolam (Xanax) 0.5 mg PO DAILY PRN PRN Reason: Anxiety Aripiprazole (Abilify) 10 mg PO DAILY [facility] Last Admin: 12/28/19 11:33 Dose: 10 mg Documented by: Dexamethasone (Dexamethasone) 6 mg PO DAILY [facility] Last Admin: 12/28/19 08:20 Dose: 6 mg Documented by: Enoxaparin Sodium (Lovenox) 40 mg SUBCUT Q24H [facility] Last Admin: 12/28/19 14:05 Dose: 40 mg Documented by: Escitalopram Oxalate (Lexapro) 20 mg PO DAILY [facility] Last Admin: 12/28/19 08:20 Dose: 20 mg Documented by: Remdesivir 100 mg/ Sodium (Chloride) 100 mls @ 100 mls/hr IV Q24H [facility] Stop: 12/29/19 12:59 Last Admin: 12/28/19 11:34 Dose: 100 mls/hr Documented by: Azithromycin 500 mg/ Sodium (Chloride) 250 mls @ 250 mls/hr IV DAILY [facility] Last Admin: 12/28/19 08:22 Dose: 250 mls/hr Documented by: Ceftriaxone Sodium/Dextrose 1 (gm/ Premix) 50 mls @ 100 mls/hr IV Q24H [facility] Last Admin: 12/28/19 10:46 Dose: 100 mls/hr Documented by: Ondansetron HCl (Zofran) 4 mg IVPUSH Q4H PRN PRN Reason: Nausea Pantoprazole Sodium (Protonix) 40 mg PO DAILY [facility] Last Admin: 12/28/19 08:20 Dose: 40 mg Documented by: Sodium Chloride (Saline Flush) 10 ml FLUSH ASDIRECTED PRN PRN Reason: Keep Vein Open Last Admin: 12/25/19 10:31 Dose: 10 ml Documented by: Sodium Chloride (Saline Flush) 2.5 ml FLUSH ASDIRECTED PRN PRN Reason: Keep Vein Open Last Admin: 12/25/19 10:31 Dose: 2.5 ml Documented by: Discontinued Medications Albuterol/Ipratropium (Combivent Respimat) 0 gm INH Q6H [facility] Last Admin: 12/27/19 10:45 Dose: 1 puff Documented by: Dexamethasone (Dexamethasone) 6 mg IVPUSH ONETIME ONE Stop: 12/25/19 10:20 Last Admin: 12/25/19 10:30 Dose: 6 mg Documented by: Ceftriaxone Sodium/Dextrose 1 (gm/ Premix) 50 mls @ 100 mls/hr IV ONETIME ONE Stop: 12/25/19 11:39 Last Admin: 12/25/19 11:16 Dose: 100 mls/hr Documented by: Remdesivir 200 mg/ Sodium (Chloride) 250 mls @ 250 mls/hr IV ONETIME ONE Stop: 12/25/19 12:59 Last Admin: 12/25/19 12:08 Dose: 250 mls/hr Documented by: Non-Formulary Medication (Zolpidem) 10 mg PO DAILY PRN PRN Reason: Anxiety Potassium Chloride (Klor-Con M20) 40 meq PO ONETIME ONE Stop: 12/27/19 11:28 Last Admin: 12/27/19 12:28 Dose: 40 meq Documented by: <Ishaan Easley - Last Filed: 12/30/19 13:02> Discharge Summary - Hospital Course Free Text/Narrative:: I have seen and evaluated the patient and agree with the residents note unless specified in my note - Referral to Home Health Primary Care Physician: PCP Unknown - Patient Data Vitals - Most Recent: Last Vital Signs Temp 36.3 C 12/28/19 16:25 Pulse 86 12/28/19 16:25 Resp 20 12/28/19 11:38 BP 119/75 12/28/19 11:38 Pulse Ox 93 L 12/28/19 16:25 [facility]ITA Results - Last 24 hrs: Microbiology 12/25/19 10:39 Aerobic Blood Culture - Final Blood - Venous - Lab Draw NO GROWTH AFTER 5 DAYS Anaerobic Blood Culture - Final NO GROWTH AFTER 5 DAYS 12/25/19 10:11 Aerobic Blood Culture - Final Blood - Venous NO GROWTH AFTER 5 DAYS Anaerobic Blood Culture - Final NO GROWTH AFTER 5 DAYS Med Orders - Current: Current Medications Discontinued Medications Acetaminophen (Tylenol) 650 mg PO Q4H PRN PRN Reason: Pain (Mild 1-3)/fever Albuterol/Ipratropium (Combivent Respimat) 0 gm INH Q6H [facility] Last Admin: 12/27/19 10:45 Dose: 1 puff Documented by: Albuterol/Ipratropium (Combivent Respimat) 0 gm INH Q6H [facility] Last Admin: 12/28/19 11:41 Dose: 1 puff Documented by: Alprazolam (Xanax) 0.5 mg PO DAILY PRN PRN Reason: Anxiety Aripiprazole (Abilify) 10 mg PO DAILY [facility] Last Admin: 12/28/19 11:33 Dose: 10 mg Documented by: Dexamethasone (Dexamethasone) 6 mg IVPUSH ONETIME ONE Stop: 12/25/19 10:20 Last Admin: 12/25/19 10:30 Dose: 6 mg Documented by: Dexamethasone (Dexamethasone) 6 mg PO DAILY [facility] Last Admin: 12/28/19 08:20 Dose: 6 mg Documented by: Enoxaparin Sodium (Lovenox) 40 mg SUBCUT Q24H [facility] Last Admin: 12/28/19 14:05 Dose: 40 mg Documented by: Escitalopram Oxalate (Lexapro) 20 mg PO DAILY [facility] Last Admin: 12/28/19 08:20 Dose: 20 mg Documented by: Ceftriaxone Sodium/Dextrose 1 (gm/ Premix) 50 mls @ 100 mls/hr IV ONETIME ONE Stop: 12/25/19 11:39 Last Admin: 12/25/19 11:16 Dose: 100 mls/hr Documented by: Remdesivir 200 mg/ Sodium (Chloride) 250 mls @ 250 mls/hr IV ONETIME ONE Stop: 12/25/19 12:59 Last Admin: 12/25/19 12:08 Dose: 250 mls/hr Documented by: Remdesivir 100 mg/ Sodium (Chloride) 100 mls @ 100 mls/hr IV Q24H [facility] Stop: 12/29/19 12:59 Last Admin: 12/28/19 11:34 Dose: 100 mls/hr Documented by: Azithromycin 500 mg/ Sodium (Chloride) 250 mls @ 250 mls/hr IV DAILY [facility] Last Admin: 12/28/19 08:22 Dose: 250 mls/hr Documented by: Ceftriaxone Sodium/Dextrose 1 (gm/ Premix) 50 mls @ 100 mls/hr IV Q24H [facility] Last Admin: 12/28/19 10:46 Dose: 100 mls/hr Documented by: Non-Formulary Medication (Zolpidem) 10 mg PO DAILY PRN PRN Reason: Anxiety Ondansetron HCl (Zofran) 4 mg IVPUSH Q4H PRN PRN Reason: Nausea Pantoprazole Sodium (Protonix) 40 mg PO DAILY [facility] Last Admin: 12/28/19 08:20 Dose: 40 mg Documented by: Potassium Chloride (Klor-Con M20) 40 meq PO ONETIME ONE Stop: 12/27/19 11:28 Last Admin: 12/27/19 12:28 Dose: 40 meq Documented by: Sodium Chloride (Saline Flush) 10 ml FLUSH ASDIRECTED PRN PRN Reason: Keep Vein Open Last Admin: 12/25/19 10:31 Dose: 10 ml Documented by: Sodium Chloride (Saline Flush) 2.5 ml FLUSH ASDIRECTED PRN PRN Reason: Keep Vein Open Last Admin: 12/25/19 10:31 Dose: 2.5 ml Documented by:
== END 2019-12-28 16:30 | disposition home or self-care (01) | DRG 137 ==
LOC: MW.ED 10:03 → MW.MS 13:57
PROVIDERS: ADMIT Internal Medicine; ATTEND Internal Medicine
PROC: XW033E5 Introduction of Remdesivir Anti-infective into Peripheral Vein, Percutaneous Approach, New Technology Group 5 (ICD-10-PCS; principal; 2019-12-25)
DX: U07.1 COVID-19 (principal); J96.01 Acute respiratory failure with hypoxia; N17.9 Acute kidney failure, unspecified; N30.01 Acute cystitis with hematuria; F32.9 Major depressive disorder, single episode, unspecified; F41.9 Anxiety disorder, unspecified; H54.7 Unspecified visual loss; N93.8 Other specified abnormal uterine and vaginal bleeding; E87.6 Hypokalemia; E66.9 Obesity, unspecified; Z98.51 Tubal ligation status; Z79.899 Other long term (current) drug therapy; Z68.34 Body mass index [BMI] 34.0-34.9, adult
CPT/HCPCS: 36415; 70450; 70450-26; 71045; 71045-26; 80053; 81001; 82803; 83605; 83880; 84484; 85025; 85379; 85610; 85652; 85730; 86140; 86850; 86900; 86901; 87040; 87086; 93005; 93010; 94640; 96374; 96375; 99222; 99232; 99238; 99285; 99285-25; A9270-GY; J0456; J0696; J1100; J1650; J7050; J8540; U0002